=== PATIENT | female | born 1965 | race Caucasian/White ===

== ENCOUNTER 2016-12-11 15:38 | Emergency (ER) | payer MEDICAID ==
[~2016-12-11] VITALS: Ht 160 cm; Wt 99.8 kg
[~2016-12-11 15:38] MED LIST: BUSP5TAB3 PO; CAT.1 PO; GLIP2.5T3 PO; GLIP5TAB13 PO; GLU500 PO; HYDR25TA4 PO; LISI40TA4 PO; LOSA25TA3 PO; LOSA50TA3 PO; METF1000 PO; NOR10 PO; PARO-41 PO; PARO20TA51; VALS1TAB40 PO
[2016-12-11 16:30] VITALS: BP 143/96; PULSE 66; RESP 20; TEMP 97.9; O2SAT 96
--- NOTE | 2016-12-11 16:37 | NUR ---
Pt placed to ER waiting room in stable condition. LESLIE Pedraza notified.
--- NOTE | 2016-12-11 17:15 | NUR ---
Pt placed to ER Chair. Dr. Brush made aware.
--- NOTE | 2016-12-11 17:30 | NUR ---
Dr. Brush at bedside to assess pt.
--- NOTE | 2016-12-11 17:45 | NUR ---
Note [facility]one in EDM - 12/11/16 at 1924 by SDEDAJ Patient given written and verbal discharge instructions and verbalizes understanding. ER discussed with patient the results and treatment provided. Patient in stable condition. ID arm band removed. Rx of [place] and Motrin given. Patient educated on pain management and to follow up with PMD. Pain Scale 3/10. Opportunity for questions provided and answered.
[2016-12-11 18:00] VITALS: BP 135/86; PULSE 72; RESP 20; TEMP 98.2; O2SAT 98
--- NOTE | 2016-12-11 18:00 | NUR ---
Patient given written and verbal discharge instructions and verbalizes understanding. ER MD discussed with patient the results and treatment provided. Patient in stable condition. ID arm band removed. Rx of [place] and Motrin given. Patient educated on pain management and to follow up with PMD. Pain Scale 3/10. Opportunity for questions provided and answered.
== END 2016-12-11 18:00 | disposition home or self-care (01) ==
LOC: SED 15:38
DX: S93.602A Unspecified sprain of left foot, initial encounter (principal); E11.9 Type 2 diabetes mellitus without complications; I10 Essential (primary) hypertension; Z88.8 Allergy status to other drugs, medicaments and biological substances; W22.01XA Walked into wall, initial encounter; Y93.89 Activity, other specified; Y99.8 Other external cause status; Y92.89 Other specified places as the place of occurrence of the external cause
CPT/HCPCS: 99284

== ENCOUNTER 2016-12-31 18:32 | Emergency (ER) | payer MEDICAID ==
[~2016-12-31] VITALS: Ht 160 cm; Wt 102.1 kg
[~2016-12-31 18:32] MED LIST changes: -GLIP5TAB13 PO; -GLU500 PO; -LISI40TA4 PO; -LOSA25TA3 PO; -PARO20TA51; -VALS1TAB40 PO
[2016-12-31 18:53] VITALS: BP_SYST 135
[2016-12-31] MEDS ORDERED: LORazepam 2 MG/ML VIAL (FOR ER USE) IVP ONE ×3 (19:00→20:00)
[2016-12-31] MEDS ORDERED: NACL 0.9% 1,000 ML IV ONE (19:00)
[2016-12-31 19:41] LABS: BASOPHILS % (AUTO) 0.5 % (0.0-2.0); EOSINOPHILS # (AUTO) 0.1 K/uL (0.0-0.4); EOSINOPHILS % (AUTO) 1.2 % (0.0-4.0); HEMATOCRIT 45.8 % (36-48); HEMOGLOBIN 15.2 g/dL (12.0-16.0); LYMPHOCYTES # (AUTO) 2.1 K/uL (1.0-5.5); LYMPHOCYTES % (AUTO) 21.5 % (20.5-51.5); MEAN CORPUSCULAR HEMOGLOBIN 29 pg (27-31); MEAN CORPUSCULAR HGB CONC 33 % (32-36); MEAN CORPUSCULAR VOLUME 88 fL (79.0-98.0); MONOCYTES # (AUTO) 0.5 K/uL (0.0-1.0); MONOCYTES % (AUTO) 5.3 % (1.7-9.3); NEUTROPHILS # (AUTO) 7.3 K/uL (1.8-7.7); NEUTROPHILS % (AUTO) 71.5 % (40.0-70.0); PLATELET COUNT (AUTO) 427 K/uL (130-430); RED BLOOD CELL COUNT(AUTO) 5.24 MIL/uL (4.2-6.2)
[2016-12-31 19:50] LABS: CALCIUM 9.5 mg/dL (8.4-11.0); CREATININE 0.93 mg/dL (0.55-1.30); POTASSIUM 3.9 mmol/L (3.5-5.1)
[2016-12-31 19:54] LABS: ALBUMIN 3.8 g/dL (3.4-4.8); TOTAL BILIRUBIN 0.3 mg/dL (0.0-1.0)
[2016-12-31 21:25] VITALS: BP_SYST 131
== END 2016-12-31 21:25 | disposition home or self-care (01) ==
LOC: SED 18:32
DX: R42 Dizziness and giddiness (principal); E11.9 Type 2 diabetes mellitus without complications; I10 Essential (primary) hypertension; Z88.8 Allergy status to other drugs, medicaments and biological substances
CPT/HCPCS: 36415; 70450; 71010; 80053; 82962; 83735; 83880; 85025; 93005; 96361; 96374; 99285; J2060; J7030

== ENCOUNTER 2017-04-24 01:04 | Emergency (ER) | payer MEDICAID ==
[~2017-04-24] VITALS: Ht 160 cm; Wt 100.2 kg
[2017-04-24 01:04] VITALS: BP_SYST 138
[2017-04-24 02:04] LABS: BILIRUBIN,URINE NEGATIVE (NEGATIVE); BLOOD, URINE NEGATIVE (NEGATIVE); CLARITY/URINE CLEAR (CLEAR); COLOR,URINE YELLOW (YELLOW); GLUCOSE,URINE TRACE (NEGATIVE); KETONES,URINE NEGATIVE (NEGATIVE); LEUKOCYTE ESTERASE ,URINE NEGATIVE (NEGATIVE); NITRITE, URINE NEGATIVE (NEGATIVE); PH,URINE 5.5 (5.0-8.0); PROTEIN URINE NEGATIVE (NEGATIVE); UROBILINOGEN,URINE 0.2 (0.2-1.0)
[2017-04-24] MEDS ORDERED: KETOROLAC TROMETHAMINE 30 MG VIAL IVP ONE (02:15)
[2017-04-24] MEDS ORDERED: ONDANSETRON HCL 4 MG/2 ML VIAL IVP ONE (02:15)
[2017-04-24 02:28] LABS: BASOPHILS % (AUTO) 0.4 % (0.0-2.0); EOSINOPHILS # (AUTO) 0.2 K/uL (0.0-0.4); EOSINOPHILS % (AUTO) 2.9 % (0.0-4.0); HEMATOCRIT 38.9 % (36-48); HEMOGLOBIN 12.9 g/dL (12.0-16.0); LYMPHOCYTES # (AUTO) 0.8 K/uL (1.0-5.5); LYMPHOCYTES % (AUTO) 10.6 % (20.5-51.5); MEAN CORPUSCULAR HEMOGLOBIN 29 pg (27-31); MEAN CORPUSCULAR HGB CONC 33 % (32-36); MEAN CORPUSCULAR VOLUME 87 fL (79.0-98.0); MONOCYTES # (AUTO) 0.7 K/uL (0.0-1.0); MONOCYTES % (AUTO) 9.3 % (1.7-9.3); NEUTROPHILS # (AUTO) 5.5 K/uL (1.8-7.7); NEUTROPHILS % (AUTO) 76.8 % (40.0-70.0); PLATELET COUNT (AUTO) 311 K/uL (130-430); RED BLOOD CELL COUNT(AUTO) 4.48 MIL/uL (4.2-6.2); WHITE BLOOD COUNT (AUTO) 7.2 K/uL (4.8-10.8)
[2017-04-24 02:37] LABS: CALCIUM 9.4 mg/dL (8.4-11.0); POTASSIUM 3.5 mmol/L (3.5-5.1)
[2017-04-24 02:42] LABS: ALBUMIN 3.3 g/dL (3.4-4.8); TOTAL BILIRUBIN 0.4 mg/dL (0.0-1.0)
[2017-04-24 03:39] VITALS: BP_SYST 145
== END 2017-04-24 03:39 | disposition home or self-care (01) ==
LOC: SED 01:04
DX: R10.9 Unspecified abdominal pain (principal); H81.10 Benign paroxysmal vertigo, unspecified ear; I88.9 Nonspecific lymphadenitis, unspecified; E11.9 Type 2 diabetes mellitus without complications; I10 Essential (primary) hypertension; Z90.49 Acquired absence of other specified parts of digestive tract; Z90.710 Acquired absence of both cervix and uterus; Z88.8 Allergy status to other drugs, medicaments and biological substances; Z79.899 Other long term (current) drug therapy
CPT/HCPCS: 36415; 74176; 80053; 81003; 83690; 85025; 96374; 96375; 99285; J1885; J2405

== ENCOUNTER 2017-04-27 17:05 | Inpatient (IN) | payer MEDICAID ==
[~2017-04-27] VITALS: Ht 160 cm; Wt 96.6 kg
--- NOTE | 2017-04-27 17:10 | NUR ---
Pt to bed 3, report given to KRISTINA Lagunas
[2017-04-27 17:17] VITALS: BP_SYST 145
--- NOTE | 2017-04-27 17:30 | NUR ---
Patient to ED bed 3 for evaluation of abdominal pain, right sided rated at 8/10 x 5 days, also c/o nausea, chills, and constipation. Patient just recently seen in ED for similar complaints. Patient to bathroom to provide urine sample which was sent to lab. Patient ambulates with slow, steady gait. Awaiting evaluation by ER MD-will continue to observe and assess.
--- NOTE | 2017-04-27 17:55 | NUR ---
Dr Valera at bedside to evaluate patient.
[2017-04-27] MEDS ORDERED: KETOROLAC TROMETHAMINE 60 MG/2 ML VIAL IM ONE (18:00)
--- NOTE | 2017-04-27 18:05 | NUR ---
Patient to X-ray department for films.
[2017-04-27 18:14] LABS: BASOPHILS % (AUTO) 0.3 % (0.0-2.0); EOSINOPHILS # (AUTO) 0.2 K/uL (0.0-0.4); EOSINOPHILS % (AUTO) 2.4 % (0.0-4.0); HEMATOCRIT 42.2 % (36-48); HEMOGLOBIN 13.8 g/dL (12.0-16.0); LYMPHOCYTES # (AUTO) 0.6 K/uL (1.0-5.5); LYMPHOCYTES % (AUTO) 7.4 % (20.5-51.5); MEAN CORPUSCULAR HEMOGLOBIN 29 pg (27-31); MEAN CORPUSCULAR HGB CONC 33 % (32-36); MEAN CORPUSCULAR VOLUME 87 fL (79.0-98.0); MONOCYTES # (AUTO) 0.4 K/uL (0.0-1.0); MONOCYTES % (AUTO) 5.5 % (1.7-9.3); NEUTROPHILS # (AUTO) 6.5 K/uL (1.8-7.7); NEUTROPHILS % (AUTO) 84.4 % (40.0-70.0); PLATELET COUNT (AUTO) 277 K/uL (130-430); RED BLOOD CELL COUNT(AUTO) 4.83 MIL/uL (4.2-6.2); RED CELL DISTRIBUTION WIDTH 11.9 % (9.0-15.0); WHITE BLOOD COUNT (AUTO) 7.7 K/uL (4.8-10.8)
--- NOTE | 2017-04-27 18:15 | NUR ---
Patient back from x-ray in stable condition.
[2017-04-27 18:24] LABS: CALCIUM 9.3 mg/dL (8.4-11.0); CREATININE 0.77 mg/dL (0.55-1.30)
[2017-04-27 18:28] LABS: ALBUMIN 3.3 g/dL (3.4-4.8); TOTAL BILIRUBIN 0.4 mg/dL (0.0-1.0)
[2017-04-27] MEDS ORDERED: POTASSIUM CHLORIDE 20 MEQ TAB.PRT.SR PO ONE ×2 (19:00→23:00)
[2017-04-27 19:35] VITALS: BP_SYST 114
--- NOTE | 2017-04-27 19:39 | NUR ---
ADMISSION NOTE Received patient from ER via gurghazala, received report from RN. Patient admitted with diagnosis of ABDOMINAL PAIN. Patient oriented to hospital routine, call light, toileting and safety-patient verbalized understanding.
--- NOTE | 2017-04-27 19:50 | NUR ---
Patient will be admitted to care of Dr Castillo. Admitted to med-surg unit. Will go to room 100 A. Belongings list completed. Summary report printed. Report will be given at bedside.
[2017-04-27 19:57] VITALS: BP_SYST 114
--- NOTE | 2017-04-27 20:01 | NUR ---
REPORT GIVEN TO PRIMARY NURSE Patient is stable with no s/s of acute distress. Report was given to SHONDA Randhawa.
[2017-04-27 20:31] VITALS: BP_SYST 114
--- NOTE | 2017-04-27 21:26 | NUR ---
notes pt c/o pain waiting for dr Castillo to come and place the orders.
--- NOTE | 2017-04-27 21:57 | NUR ---
notes dr Castillo is here to see the pt.
[2017-04-27] MEDS ORDERED: DEXTROSE 50% JECT 50 ML DISP.SYRIN IVP PRN (22:00)
--- NOTE | 2017-04-27 22:01 | NUR ---
paged paged Dr. Hawkins, dialed . s/w Deloris.
[2017-04-27] MEDS ORDERED: GOLYTELY / COLYTE SOLUTION 4 LITERS PO ONE (23:00)
[2017-04-27] MEDS: LR 1,000 ML IV SCH (23:02)
--- NOTE | 2017-04-27 23:09 | NUR ---
NOTES IV HUNG ORDERED.GOLYTELY GIVEN WITH INSTRUCTIONS.
[2017-04-27] MEDS: MORPHINE 4 MG/ML INJ. SYRINGE IVP PRN (23:17)
--- NOTE | 2017-04-27 23:23 | NUR ---
PAIN Patient is awake with complaints of "8/10" generalized pain to abdomen, neck, and ears. Patient was given Morphine 4mg IVP as ordered PRN for severe pain. See EMAR. Educated patient regarding medication and potential side effects and potential risk for falls. Instructed patient to use call light for any needs, especially when ambulating out of bed for safety precautions. Patient verbalized understanding and is able to use call light. Bed alarm remains off as requested by patient. SHONDA Randhawa also aware. Will continue to monitor.
--- NOTE | 2017-04-27 23:28 | NUR ---
notes pt refusing scd.
[2017-04-28] VITALS (7 sets, daily range): BP systolic 111–165
--- NOTE | 2017-04-28 01:22 | NUR ---
notes pt awake and states no bm yet.tolerating the goleitly well,continue to monitor.
[2017-04-28] MEDS: DIPHENHYDRAMINE INJ 50 MG/ML VIAL IVP PRN ×2 (01:49→08:23)
--- NOTE | 2017-04-28 01:52 | NUR ---
ITCHING Patient complaining of "itching all over." Benadryl IVP was given as ordered PRN for itching. Educated patient regarding medication and potential side effects. Safety precautions in place. Instructed patient to use call light for needs. Will continue to monitor.
--- NOTE | 2017-04-28 03:30 | NUR ---
notes pt sleeping at times,no distress noted.continue to monitor.
--- NOTE | 2017-04-28 03:49 | NUR ---
notes pt scratching both arms and c/o pain to both ears.pt states she started itching before she was given the morphine.RN was notified.
[2017-04-28] MEDS: MORPHINE 4 MG/ML INJ. SYRINGE IVP PRN ×2 (03:55→16:25)
--- NOTE | 2017-04-28 03:59 | NUR ---
PAIN Patient is awake with complaints of "8/10" pain to ear. Patient medicated with Morphine 4mg IVP as ordered PRN for severe pain. Medication and potential side effects reviewed with patient. HOME HEALTH AIDE CAREGIVER at bedside. Educated patient to use call light for needs. Safety precautions in place. Will continue to monitor.
--- NOTE | 2017-04-28 05:30 | NUR ---
notes pt drank 2000 ml of goleitly c/o mild abdominal cramping.but has had no bm yet.continue to monitor.
--- NOTE | 2017-04-28 05:58 | NUR ---
PAGED I PAGED DR. BAEZA @ [phone] I SPOKE WITH DEONTE MILLARD
--- NOTE | 2017-04-28 06:09 | NUR ---
NOTES SPOKE WITH DR Mazariegos,NEW ORDERS TAKEN.
--- NOTE | 2017-04-28 06:32 | NUR ---
NOTES SURGERY NURSE IS AT THE BEDSIDE,CALL PLACED TO DR DALY.ACCUCHECK WAS 267,INSULIN GIVEN PER S/S.
[2017-04-28] MEDS: INSULIN REGULAR, HUMAN 100 UNITS/ML, 10 ML VIAL (novoLIN R) SUBCUT PRN ×3 (06:38→21:38)
--- NOTE | 2017-04-28 06:51 | NUR ---
NOTES SPOKE WITH DR DALY,WAS TOLD THE PT HAD A LARGE BM , STATED HE WILL DO THE COLONOSCOPY TOMORROW,SURGERY NURSE WAS NOTIFIED.
--- NOTE | 2017-04-28 07:01 | NUR ---
LATE ENTRY: BLAKE HUNTER, DR DALY WAS CALLED, RE: PT NOT CLEAR FOR THE PROCEDURE. SPOKE TO ANNIA.
--- NOTE | 2017-04-28 07:30 | NUR ---
Initial notes: patient on bed, awake, alert and oriented. Stable. i.V. access patent. Call light within reach. Report received at bedside.
[2017-04-28 07:37] LABS: BASOPHILS % (AUTO) 0.4 % (0.0-2.0); EOSINOPHILS # (AUTO) 0.2 K/uL (0.0-0.4); EOSINOPHILS % (AUTO) 2.9 % (0.0-4.0); HEMATOCRIT 40.5 % (36-48); HEMOGLOBIN 13.1 g/dL (12.0-16.0); LYMPHOCYTES # (AUTO) 0.5 K/uL (1.0-5.5); LYMPHOCYTES % (AUTO) 8.7 % (20.5-51.5); MEAN CORPUSCULAR HEMOGLOBIN 28 pg (27-31); MEAN CORPUSCULAR HGB CONC 32 % (32-36); MEAN CORPUSCULAR VOLUME 87 fL (79.0-98.0); MONOCYTES # (AUTO) 0.5 K/uL (0.0-1.0); MONOCYTES % (AUTO) 7.6 % (1.7-9.3); NEUTROPHILS # (AUTO) 4.9 K/uL (1.8-7.7); NEUTROPHILS % (AUTO) 80.4 % (40.0-70.0); PLATELET COUNT (AUTO) 273 K/uL (130-430); RED BLOOD CELL COUNT(AUTO) 4.64 MIL/uL (4.2-6.2); RED CELL DISTRIBUTION WIDTH 11.6 % (9.0-15.0); WHITE BLOOD COUNT (AUTO) 6.1 K/uL (4.8-10.8)
[2017-04-28 08:04] LABS: CALCIUM 8.8 mg/dL (8.4-11.0); CREATININE 0.81 mg/dL (0.55-1.30); POTASSIUM 3.6 mmol/L (3.5-5.1); THYROID STIMULATING HORMONE 3.46 uIu/mL (0.34-4.82)
[2017-04-28] MEDS: MORPHINE 2 MG/ML INJ. SYRINGE IVP PRN ×2 (08:24→21:45)
[2017-04-28 08:57] LABS: ERYTHROCYTE SEDIMENTATION RATE 38 MM/HR (0-20)
[2017-04-28] MEDS: amLODIPine BESYLATE 10 MG TABLET PO SCH (09:30)
[2017-04-28] MEDS: metFORMIN HCL 500 MG TABLET PO SCH ×2 (09:30→19:46)
[2017-04-28] MEDS: PARoxetine HCL 20 MG TABLET PO SCH ×2 (09:31→20:58)
[2017-04-28] MEDS: cloNIDine HCL 0.1 MG TABLET PO SCH ×3 (09:31→20:58)
[2017-04-28] MEDS: HYDROCHLOROTHIAZIDE 25 MG TABLET (HCTZ) PO SCH (09:31)
[2017-04-28] MEDS: LOSARTAN POTASSIUM 50 MG TABLET (COZAAR) PO SCH (09:32)
--- NOTE | 2017-04-28 09:50 | NUR ---
Vomiting: patient after 5 min taking medication threw up. Informed Dr. Castillo and give again the medication.
[2017-04-28] MEDS: LR 1,000 ML IV SCH ×2 (10:02→21:50)
--- NOTE | 2017-04-28 11:56 | NUR ---
Dietitian Recommendations * Recommend continuing clear liquid and NPO status as per MD * Consider advance diet if/when medically appropriate (diabetic diet) LP, RD Please refer to Nutrition Assessment for details.
--- NOTE | 2017-04-28 11:57 | NUR ---
rounds: patient resting. no episode of vomiting. no distress noted.
[2017-04-28] MEDS: PANTOPRAZOLE SODIUM 40 MG/VIAL (PROTONIX) IVP SCH ×2 (12:59→20:59)
[2017-04-28] MEDS: POTASSIUM CHLORIDE 20 MEQ TAB.PRT.SR PO SCH ×2 (12:59→20:59)
--- NOTE | 2017-04-28 13:06 | NUR ---
Deanne rounds: Seen by Dr. Castillo and talk to pt. Discussed plan of care.
[2017-04-28] MEDS ORDERED: BISACODYL 5 MG TABLET.DR (DULCOLAX) PO ONE (14:00)
[2017-04-28] MEDS ORDERED: GOLYTELY / COLYTE SOLUTION 4 LITERS PO ONE (16:00)
[2017-04-28] MEDS ORDERED: BISACODYL 5 MG TABLET.DR (DULCOLAX) ONE (16:28)
--- NOTE | 2017-04-28 16:35 | NUR ---
rounds: patient on bed sleeping. woke up and complained of neck pain 04/05. due pain meds given. BS 148. no insulin coverage per sliding scale.
[2017-04-28] MEDS ORDERED: MAGNESIUM CITRATE 300 ML ORAL SOLUTION PO ONE (19:00)
--- NOTE | 2017-04-28 19:25 | NUR ---
PM ASSESSMENT AND REPORT Patient awake, alert, oriented x4 lying in bed comfortably with family member at bedside. Patient denies at this time abdomen pain. Patient encouraged to drink the preparation medication noted at bedside per MD order. Patient with IV fluids infusing, iv intact and patent.
--- NOTE | 2017-04-28 19:30 | NUR ---
closing notes: patient verbalized she's having watery stool. informed pt to call [facility] shift lead nurse if she will have BM so they can see. Stable. Call light within reach. Report given to [facility] shift lead.
[2017-04-28] MEDS: glipiZIDE XL 5 MG TAB ( GLUCOTROL XL) PO SCH (21:00)
--- NOTE | 2017-04-28 21:48 | NUR ---
Medication Administered pm medications at this time. Patient complained of pain 6/10 dull and aching in upper stomach and neck, Morphine sulfate 2mg ivp medication give for prn pain. Will assess in 30 minutes.
--- NOTE | 2017-04-28 22:50 | NUR ---
ROUNDS PATIENT RESTING IN BED WITH FAMILY AT BEDSIDE FOR COMFORT. PATIENT DENIES ANY PAIN AT THIS TIME. ENCOURAGE PATIENT TO CALL FOR ASSISTANCE TO TOILET TO ASSESS STOOL APPEARANCE. ENCOURAGE PATIENT TO DRINK THE PROCEDURE PREPARATION MEDICATION.
[2017-04-29] VITALS (7 sets, daily range): BP systolic 101–129
--- NOTE | 2017-04-29 | NUR ---
Rounds Assisted patient to toilet, noted ackerman colored watery stool. Encourage patient to continue to drink golytely. Patient verbalized understanding. Denies any pain or discomfort at this time.
--- NOTE | 2017-04-29 02:25 | NUR ---
Rounds Patient resting at this time. Bed alarm on. Denies any discomfort.
--- NOTE | 2017-04-29 04:48 | NUR ---
Rounds Assisted patient to toilet. Encourage drinking bowel preparation medication. Noted tannish clear watery urine output.
[2017-04-29] MEDS: MORPHINE 2 MG/ML INJ. SYRINGE IVP PRN ×3 (05:53→21:01)
[2017-04-29] MEDS: INSULIN REGULAR, HUMAN 100 UNITS/ML, 10 ML VIAL (novoLIN R) SUBCUT PRN ×3 (06:02→20:58)
--- NOTE | 2017-04-29 06:05 | NUR ---
Closing notes: Patient educated on procedure at this time. Bowel movements noted clear water. Procedure scheduled at 0645. Provided pain prn morphine sulfate ivp medication at this time for cramping in stomach. Patient denies anything more at this time.
[2017-04-29] MEDS: MEPERIDINE HCL/PF 100 MG/ML AMP ONE ×2 (06:23→07:19)
[2017-04-29] MEDS ORDERED: SIMETHICONE 40 MG/0.6 ML ML ONE (06:24)
[2017-04-29] MEDS: MIDAZOLAM HCL 5 MG/5 ML VIAL ONE ×2 (06:24→07:19)
--- NOTE | 2017-04-29 07:22 | NUR ---
Initial notes: Patient still on G.I. lab on going procedure.
--- NOTE | 2017-04-29 07:45 | NUR ---
Opening Note Received report from Noa ACEVEDO. will be taking over the patient's care. Patient is currently in GI lab.
--- NOTE | 2017-04-29 08:18 | NUR ---
RN Note Patient returned to the unit form GI lab. She is awake and alert. Current O2 sat is 90%. Will place her on o2 2l and recheck O2. Iv is on the IV is on the right hand 22g. Will continue to monitor.
[2017-04-29 08:22] LABS: BASOPHILS % (AUTO) 0.2 % (0.0-2.0); EOSINOPHILS # (AUTO) 0.2 K/uL (0.0-0.4); EOSINOPHILS % (AUTO) 3.3 % (0.0-4.0); HEMATOCRIT 33.8 % (36-48); HEMOGLOBIN 11.5 g/dL (12.0-16.0); LYMPHOCYTES # (AUTO) 0.8 K/uL (1.0-5.5); LYMPHOCYTES % (AUTO) 13.7 % (20.5-51.5); MEAN CORPUSCULAR HEMOGLOBIN 29 pg (27-31); MEAN CORPUSCULAR HGB CONC 34 % (32-36); MEAN CORPUSCULAR VOLUME 86 fL (79.0-98.0); MONOCYTES # (AUTO) 0.6 K/uL (0.0-1.0); NEUTROPHILS # (AUTO) 4.4 K/uL (1.8-7.7); NEUTROPHILS % (AUTO) 72.8 % (40.0-70.0); PLATELET COUNT (AUTO) 240 K/uL (130-430); RED BLOOD CELL COUNT(AUTO) 3.92 MIL/uL (4.2-6.2); RED CELL DISTRIBUTION WIDTH 11.9 % (9.0-15.0)
[2017-04-29 08:29] LABS: CALCIUM 8.1 mg/dL (8.4-11.0); CREATININE 0.79 mg/dL (0.55-1.30); POTASSIUM 3.7 mmol/L (3.5-5.1)
[2017-04-29 08:37] LABS: PROTHROMBIN TIME 11.3 SECS (9.5-12.5)
[2017-04-29] MEDS: glipiZIDE XL 5 MG TAB ( GLUCOTROL XL) PO SCH ×3 (09:00→21:00)
[2017-04-29] MEDS: metFORMIN HCL 500 MG TABLET PO SCH (09:37)
[2017-04-29] MEDS: PARoxetine HCL 20 MG TABLET PO SCH ×2 (09:38→21:00)
[2017-04-29] MEDS: amLODIPine BESYLATE 10 MG TABLET PO SCH (09:38)
[2017-04-29] MEDS: POTASSIUM CHLORIDE 20 MEQ TAB.PRT.SR PO SCH ×2 (09:38→21:00)
[2017-04-29] MEDS: PANTOPRAZOLE SODIUM 40 MG/VIAL (PROTONIX) IVP SCH ×2 (09:39→21:00)
[2017-04-29] MEDS: HYDROCHLOROTHIAZIDE 25 MG TABLET (HCTZ) PO SCH (09:39)
[2017-04-29] MEDS: LOSARTAN POTASSIUM 50 MG TABLET (COZAAR) PO SCH (09:39)
[2017-04-29] MEDS: cloNIDine HCL 0.1 MG TABLET PO SCH ×3 (09:39→21:00)
--- NOTE | 2017-04-29 09:45 | NUR ---
RN Note Patient went to x-ray in stable condition, accompanied by x-ray tech.
--- NOTE | 2017-04-29 11:05 | NUR ---
RN Note Patient returned to the unit in stable condition.
[2017-04-29] MEDS: MORPHINE 4 MG/ML INJ. SYRINGE IVP PRN (11:33)
--- NOTE | 2017-04-29 12:30 | NUR ---
Pain med Patient was medicated for pain. Will reassess.
--- NOTE | 2017-04-29 14:35 | NUR ---
Rounds Patient is resting in bed. Call light is within reach.
--- NOTE | 2017-04-29 16:50 | NUR ---
Pain med Medicated the patient for pain. Will reassess.
[2017-04-29] MEDS: LR 1,000 ML IV SCH (16:51)
--- NOTE | 2017-04-29 18:07 | NUR ---
Closing Note Patient is resting in bed. Family is at the bedside. Call light is within reach. Bed is in low position. IV 22g is on the right hand running LR@80ml/hr. Will give report to the oncoming nurse.
--- NOTE | 2017-04-29 19:25 | NUR ---
INITIAL NOTE Patient resting on the bed. No acute distress. Respiration even and unlabored. AO x 4. Denied of pain at this time. Skin warm and dry to touch. IV intact to right hand, no redness, no swelling, no drainage. On LR at 80ml/hr, infusing well. Discussed the safety issue, use call light when need help, and plan of care, verbally understanding. Safety measure maintained. Bed in low position, side rails up. Call light within reached. Will continue to monitor.
--- NOTE | 2017-04-29 21:10 | NUR ---
NOTE schedule meds given. No acute distress. PS=681, refused 2unit regular insulin and stated "I will be nothing by mouth midnight, I don't want my sugar drop." Morphine 2mg IVP given as ordered for c/o bilateral neck pain02/03. Safety measure maintained. Call light within reached. Will continue to monitor.
--- NOTE | 2017-04-29 23:01 | NUR ---
ROUND Patient resting on the bed with eyes closed. No acute distress. Respiration even and unlabored. IV intact, IVF infusing well. Safety measure maintained. Bed in low position, side rails up. Call light within reached. Continue to monitor.
[2017-04-30] VITALS: BP_SYST 108
--- NOTE | 2017-04-30 01:12 | NUR ---
ROUND Patient resting on the bed with eyes closed. No acute distress. IV intact, IVF infusing well. Safety measure maintained. Bed in low position, side rails up. Call light within reached. Continue to monitor.
--- NOTE | 2017-04-30 03:02 | NUR ---
ROUND Patient resting on the bed with eyes closed. Respiration even and unlabored. No acute distress. IV intact, IVF infusing well. Safety measure maintained. Bed in low position, side rails up. Call light within reached. Continue to monitor.
[2017-04-30 04:00] VITALS: BP_SYST 118
[2017-04-30] MEDS: LR 1,000 ML IV SCH ×3 (04:24→22:34)
[2017-04-30] MEDS: MORPHINE 2 MG/ML INJ. SYRINGE IVP PRN ×2 (04:24→09:30)
--- NOTE | 2017-04-30 04:24 | NUR ---
MORPHINE GIVEN Patient c/o right and left neck pain 6/10, Morphine 2mg IVP given as ordered. No acute distress. Safety measure maintained. Bed in low position, side rails up. Call light within reached. Continue to monitor.
--- NOTE | 2017-04-30 06:40 | NUR ---
CLOSING NOTE Patient resting on the bed. No acute distress. Respiration even and unlabored. Skin warm and dry to touch. IV intact to right hand, no redness, no swelling, no drainage. On LR at 80ml/hr, infusing well. All needs met. Safety measure maintained. Bed in low position, side rails up. Call light within reached. Will continue to monitor.
[2017-04-30] MEDS: INSULIN REGULAR, HUMAN 100 UNITS/ML, 10 ML VIAL (novoLIN R) SUBCUT PRN ×3 (06:59→21:17)
[2017-04-30] MEDS ORDERED: DIATR MEGLU/DIATRIZ SOD 30 ML SOLUTION PO ONE (07:33)
[2017-04-30 08:00] VITALS: BP_SYST 147
--- NOTE | 2017-04-30 08:00 | NUR ---
am shift note: RECEIVED PT A/O X4, C/O ABDOMINAL PAIN, 12/04 , NPO FOR CT OF ABDOMEN, IV AT RT HAND WITH RL AT 80ML/HR, AMBULATED, SKIN INTACT, VOIDING, BED AT LOW POSITION, CALL LIGHT WITHIN REACH.
[2017-04-30] MEDS: glipiZIDE XL 5 MG TAB ( GLUCOTROL XL) PO SCH ×2 (09:01→21:23)
[2017-04-30] MEDS: POTASSIUM CHLORIDE 20 MEQ TAB.PRT.SR PO SCH ×2 (09:03→21:23)
[2017-04-30] MEDS: cloNIDine HCL 0.1 MG TABLET PO SCH ×3 (09:03→21:23)
[2017-04-30] MEDS: LOSARTAN POTASSIUM 50 MG TABLET (COZAAR) PO SCH (09:03)
[2017-04-30] MEDS: PARoxetine HCL 20 MG TABLET PO SCH ×2 (09:03→21:23)
[2017-04-30] MEDS: amLODIPine BESYLATE 10 MG TABLET PO SCH (09:04)
[2017-04-30] MEDS: HYDROCHLOROTHIAZIDE 25 MG TABLET (HCTZ) PO SCH (09:04)
[2017-04-30] MEDS: PANTOPRAZOLE SODIUM 40 MG/VIAL (PROTONIX) IVP SCH ×2 (09:05→21:22)
--- NOTE | 2017-04-30 10:10 | NUR ---
PT WENT FOR CT: PT WENT FOR CT, VITAL SIGNS STABLE.
[2017-04-30] MEDS ORDERED: IOHEXOL 100 ML IV ONE (10:28)
--- NOTE | 2017-04-30 10:45 | NUR ---
PT RETURN FROM CT: PT RETURN FROM CT, CONTINUE TO MONITOR.
[2017-04-30 12:00] VITALS: BP_SYST 128
[2017-04-30] MEDS: DIPHENHYDRAMINE INJ 50 MG/ML VIAL IVP PRN (12:39)
--- NOTE | 2017-04-30 14:30 | NUR ---
MD ROUNDING: SEEN BY , ORDER CARRIED OUT.
[2017-04-30] MEDS ORDERED: KETOROLAC TROMETHAMINE 15 MG VIAL IVP PRN (14:45)
[2017-04-30] MEDS ORDERED: HYDROcodone/ACETAMIN 5-325 MG TAB (NORCO/ VICODIN) PO PRN (14:45)
[2017-04-30] MEDS: ONDANSETRON HCL 4 MG/2 ML VIAL IVP PRN (15:05)
--- NOTE | 2017-04-30 15:29 | NUR ---
CONSULTATION PAGED REASON FOR CONSULTATION:ABDOMINAL MASS WAS CONSULT CALLED?Y PERSON WHO WAS NOTIFIED:COLE CONSULTING PHYSICIAN:BILLY MARTINEZ BOOKKEEPING TEACHER SPECIALTY:SURGEON BOOKKEEPING TEACHER PHONE NUMBER:[phone] REQUESTING PHYSICIAN:ALEM ROLDAN
[2017-04-30 16:13] VITALS: BP_SYST 122
--- NOTE | 2017-04-30 16:30 | NUR ---
ROUNDING: PT HAD FAMILY VISIT, CONTINUE TO MONITOR.
--- NOTE | 2017-04-30 19:10 | NUR ---
CLOSING NOTE: ENDORSED TO [employer] LAYUP LINE CORE FEEDER FOR CONTINUE CARE.
[2017-04-30 20:00] VITALS: BP_SYST 138
--- NOTE | 2017-04-30 20:00 | NUR ---
ROUNDS PATIENT IN BED, WATCHING TV, NOT IN DISTRESS, VITALS STABLE, DENIES ANY PAIN AND DISCOMFORT AT THIS TIME. ASSESSMENT DONE AND DOCUMENTED. SEE FLOWSHEET. NEEDS ATTENDED TO. SAFETY AND FALL PRECAUTION MEASURES IN PLACED. BED IN LOW AND LOCKED POSITION. CALL LIGHT PLACED WITHIN REACH.
--- NOTE | 2017-04-30 21:15 | NUR ---
MEDICATION DUE MEDICATIONS GIVEN ORDERED, TOLERATED WELL. WILL CONTINUE TO MONITOR.
[2017-04-30] MEDS: HYDROcodone/ACETAMIN 5-325 MG TAB (NORCO/ VICODIN) PO PRN (21:25)
[2017-05-01] VITALS: BP_SYST 121
--- NOTE | 2017-05-01 | NUR ---
PATIENT RESTING: Patient resting quietly. No acute distress noted. Vital signs within normal range.
--- NOTE | 2017-05-01 02:10 | NUR ---
ROUNDS PATIENT ASLEEP, NO SOB NOTED, WILL CONTINUE TO MONITOR.
[2017-05-01] MEDS: HYDROcodone/ACETAMIN 5-325 MG TAB (NORCO/ VICODIN) PO PRN (02:16)
[2017-05-01] MEDS: DIPHENHYDRAMINE INJ 50 MG/ML VIAL IVP PRN ×4 (02:17→16:41)
[2017-05-01 04:00] VITALS: BP_SYST 118
--- NOTE | 2017-05-01 04:00 | NUR ---
PATIENT RESTING: Patient resting quietly. No acute distress noted. Vital signs within normal range.
--- NOTE | 2017-05-01 06:50 | NUR ---
CLOSING NOTES PATIENT AWAKE, VITALS STABLE, DENIES ANY PAIN AND DISCOMFORT AT THIS TIME. ALL NEEDS ATTENDED TO. SAFETY MEASURES MAINTAINED. CALL LIGHT PLACED WITHIN REACH.
[2017-05-01 08:00] VITALS: BP_SYST 141
--- NOTE | 2017-05-01 08:00 | NUR ---
AM SHIFT NOTE: RECEIVED PT A/O X 4, C/O NECK PAIN, WILL DO CT OF NECK TODAY, IV AT LEFT HAND, AMBULATED WELL, NPO FOR PROCEDURE, BED AT LOWEST POSITION, CALL LIGHT WITHIN REACH.
--- NOTE | 2017-05-01 08:45 | NUR ---
ROUNDING: ROUTINE MEDS GIVEN, PT TOLERATED WELL.
[2017-05-01] MEDS: PANTOPRAZOLE SODIUM 40 MG/VIAL (PROTONIX) IVP SCH ×2 (08:50→21:25)
[2017-05-01] MEDS: POTASSIUM CHLORIDE 20 MEQ TAB.PRT.SR PO SCH ×2 (08:51→21:25)
[2017-05-01] MEDS: ONDANSETRON HCL 4 MG/2 ML VIAL IVP PRN (08:51)
[2017-05-01] MEDS: PARoxetine HCL 20 MG TABLET PO SCH ×2 (08:51→21:25)
[2017-05-01] MEDS: HYDROCHLOROTHIAZIDE 25 MG TABLET (HCTZ) PO SCH (08:52)
[2017-05-01] MEDS: amLODIPine BESYLATE 10 MG TABLET PO SCH (08:53)
[2017-05-01] MEDS: LOSARTAN POTASSIUM 50 MG TABLET (COZAAR) PO SCH (08:54)
[2017-05-01] MEDS: cloNIDine HCL 0.1 MG TABLET PO SCH ×3 (08:55→21:25)
--- NOTE | 2017-05-01 09:15 | NUR ---
PT WENT FOR CT: PT WENT FOR CT, VITAL SIGNS STABLE.
[2017-05-01] MEDS ORDERED: IOHEXOL 100 ML IV ONE (09:50)
--- NOTE | 2017-05-01 10:05 | NUR ---
PT RETURNED FROM CT: PT RETURNED FROM CT, RESUME DIET.
[2017-05-01] MEDS: glipiZIDE XL 5 MG TAB ( GLUCOTROL XL) PO SCH ×2 (11:08→21:25)
[2017-05-01 12:28] VITALS: BP_SYST 143
--- NOTE | 2017-05-01 14:58 | NUR ---
Nutrition F/U Admitting Diagnosis Abd pain, mild protein malnutrition Reviewed Pertinent Medical/Surgical Hx Medical Record Patient Family member Medical History Comment: DM type 2, HTN, depression per MD notes Subjective Information Pt seen resting in bed w/ sister at bedside. Lunch tray observed 50-75% eaten. Pt reported that today's lunch was her first solid meal during hospital stay. Pt was seen by surgeon earlier today whose plans include: interventional radiologic Bx to r/o reactive lymph nodes, infection, and neoplastic Dz. Attending MD also saw pt today; pending ID and hematology/oncology consults. Pt had colonoscopy on 04/29/17 which revealed post-op diverticulosis, small internal hemorrhoids. Pt stated that she hasn't had any solid BM yet, and believes she is still expelling barium contrast. Pt is not yet meeting optimal nutritional needs. Pt is not yet appropriate for nutrition education. Current Diet Order/Nutrition Support Regular, CCHO low carb-45 gm x1 day Patient/Significant Other Able To Verbalize Education Provided Not Indicated Pertinent Medications hydrodiuril, glipizide, zofran SSI Pertinent Labs 04/29/17: Na 136 WNL (improved), BG 193 H, POC BG 203 H, LDL 106 H (04/28/17), HDL 28 H (04/28/17), Triglycerides 220 H (04/28/17) Height (Feet) 5 feet Height (Inches) 3.00 inches Weight (Pounds) 213 pounds (admission) Weight (Calculated Kilograms) 96.200724 kilograms Patient Weight 96.615 kg Body Mass Index 37.73 kg/m2 Usual Weight 220 lbs %UBW 97 %IBW 187 [place]/Adjusted Body Weight IBW: 115 lb, 52 kg. Adj IBW (obesity): 140 lb, 64 kg Recent Weight Change Yes - 7 lb wt loss within past month d/t abd pain; 3% significant wt change Weight Status Obese Food Allergies Yes - Onions; reaction: vomiting/hives Usual Diet At Home Tries to monitor BG levels; eats more fish and tries to eat less red meat Skin Integrity Comment: Karel scale: 19; per nursing notes, L leg: excoriation Current % PO Poor Estimated Energy Expenditure (kcals/day) 3592-0311 kcal/day (BEE x 1-1.2 CBW for maintenance) Estimated Protein Required (g/day) 42-52 gm/day (0.8-1 gm/kg IBW for maintenance) Estimated Fluid Required (l/day) 1.6-2 L/day (1 ml/kcal/day for maintenance) Problem/Etiology/Signs/Symptoms Complicated GI function related to abd pain as evidenced by need for GI workups and pending colonoscopy. Expected Outcomes/Goals - Monitor advancement of diet, appetite, and PO intakes w/ goal of pt meeting at least 50% of estimated nutritional needs, labs trending WNL, normal GI function, and skin integrity/wt maintenance Dietitian Recommendations * Recommend continuing regular, CCHO low carb-45 gm diet Follow Up High Risk: F/U in 2-3 days
--- NOTE | 2017-05-01 15:08 | NUR ---
Dietitian Recommendations * Recommend continuing regular, CCHO low carb-45 gm diet LP, RD Please refer to Nutrition Assessment for details.
--- NOTE | 2017-05-01 15:20 | NUR ---
CONSULT HEMATOLOGY LYMPHADENOPATHY DR RUSHING [phone] S/W [facility] OFFICE @ [id number]
--- NOTE | 2017-05-01 15:28 | NUR ---
CONSULT ID LYMPHADENOPATHY DR AHUMADA [phone] S/W [facility] OFFICE @ 1026
[2017-05-01 16:01] VITALS: BP_SYST 119
--- NOTE | 2017-05-01 16:30 | NUR ---
ROUNDING; PT WAS RESTING , NO C/O PAIN AT THIS TIME.
[2017-05-01] MEDS: LR 1,000 ML IV SCH (16:59)
--- NOTE | 2017-05-01 18:50 | NUR ---
RECEIVED A CALL FROM LAB: NEED A PROVAL FOR A LAB TEST , ORDERED BY /KEREN.
--- NOTE | 2017-05-01 19:20 | NUR ---
Closing: Endorsed to hourly shift RN for continue care.
--- NOTE | 2017-05-01 19:35 | NUR ---
CANDI HUNTER: PAGEBetsy ALEXANDER FOR A LAB TEST.
--- NOTE | 2017-05-01 19:40 | NUR ---
RECEIVED A CALL FROM : RECEIVED A CALL FROM DR. VYAS REGARDING LAB TEST OF CAT SCRATCH (BARTONELLA) ANTIBODIES TEST.
--- NOTE | 2017-05-01 20:00 | NUR ---
ROUNDS PATIENT AWAKE, WATCHING TV, VITALS STABLE, DENIES ANY PAIN AND DISCOMFORT AT THIS TIME. ASSESSMENT DONE AND DOCUMENTED. SEE FLOWSHEET. VISITORS AT THE BEDSIDE. NEEDS ATTENDED TO. SAFETY MEASURES IN PLACED. BED IN LOW AND LOCKED POSITION. CALL LIGHT PLACED WITHIN REACH.
--- NOTE | 2017-05-01 21:30 | NUR ---
ACCU CHECK ACCU CHECK DONE, BLOOD SUGAR 191 WITH 2 UNITS REGULAR INSULIN GIVEN SUBCUTANEOUSLY PER SLIDING SCALE. WILL CONTINUE TO MONITOR.
[2017-05-01] MEDS: INSULIN REGULAR, HUMAN 100 UNITS/ML, 10 ML VIAL (novoLIN R) SUBCUT PRN (22:11)
[2017-05-01 23:54] VITALS: BP_SYST 117
--- NOTE | 2017-05-02 | NUR ---
PATIENT RESTING: Patient resting quietly. No acute distress noted. Vital signs within normal range.
--- NOTE | 2017-05-02 00:05 | NUR ---
PATIENT RESTING: Patient resting quietly. No acute distress noted. Vital signs within normal range.
--- NOTE | 2017-05-02 02:20 | NUR ---
ROUNDS PATIENT ASLEEP, NO SIGNS AND SYMPTOMS OF ANY PAIN AND DISCOMFORT AT THIS TIME. WILL CONTINUE TO MONITOR.
[2017-05-02 03:50] VITALS: BP_SYST 107
--- NOTE | 2017-05-02 04:15 | NUR ---
PATIENT RESTING: Patient resting quietly. No acute distress noted. Vital signs within normal range.
[2017-05-02] MEDS: LR 1,000 ML IV SCH (05:39)
[2017-05-02] MEDS: INSULIN REGULAR, HUMAN 100 UNITS/ML, 10 ML VIAL (novoLIN R) SUBCUT PRN ×2 (06:34→21:29)
--- NOTE | 2017-05-02 06:44 | NUR ---
CLOSING NOTES PATIENT AWAKE, VITALS STABLE, DENIES ANY PAIN AND DISCOMFORT AT THIS TIME. ALL NEEDS ATTENDED TO. CALL LIGHT PLACED WITHIN REACH.
[2017-05-02 08:00] VITALS: BP_SYST 116
--- NOTE | 2017-05-02 08:00 | NUR ---
AM SHIFT NOTE: RECEIVED PT A/O X4, IV AT LT HAND, REGULAR DIET, AMBULATED, BED AT LOW POSITION, CALL LIGHT WITHIN REACH.
[2017-05-02] MEDS: PARoxetine HCL 20 MG TABLET PO SCH ×2 (09:21→21:25)
[2017-05-02] MEDS: amLODIPine BESYLATE 10 MG TABLET PO SCH (09:21)
[2017-05-02] MEDS: HYDROCHLOROTHIAZIDE 25 MG TABLET (HCTZ) PO SCH (09:22)
[2017-05-02] MEDS: cloNIDine HCL 0.1 MG TABLET PO SCH ×3 (09:23→21:25)
[2017-05-02] MEDS: POTASSIUM CHLORIDE 20 MEQ TAB.PRT.SR PO SCH ×2 (09:23→21:24)
[2017-05-02] MEDS: glipiZIDE XL 5 MG TAB ( GLUCOTROL XL) PO SCH ×2 (09:25→21:24)
[2017-05-02] MEDS: LOSARTAN POTASSIUM 50 MG TABLET (COZAAR) PO SCH (09:25)
[2017-05-02] MEDS: PANTOPRAZOLE SODIUM 40 MG/VIAL (PROTONIX) IVP SCH ×2 (09:25→22:04)
--- NOTE | 2017-05-02 09:30 | NUR ---
ROUNDS: ROUTINE MEDS GIVEN, CONTINUE TO MONITOR.
[2017-05-02] MEDS: DIPHENHYDRAMINE INJ 50 MG/ML VIAL IVP PRN ×2 (11:22→13:51)
[2017-05-02] MEDS: HYDROcodone/ACETAMIN 5-325 MG TAB (NORCO/ VICODIN) PO PRN ×2 (11:23→21:26)
[2017-05-02 12:10] VITALS: BP_SYST 132
--- NOTE | 2017-05-02 13:00 | NUR ---
ROUNDING: PT HAD LUNCH WELL.
[2017-05-02] MEDS: DOXYCYCLINE HYCLATE 100 MG in D5W 100 ML IV SCH (13:30)
[2017-05-02] MEDS: AZITHROMYCIN 500 MG in NS 250 ML IV SCH (13:30)
--- NOTE | 2017-05-02 14:30 | NUR ---
MD ROUNDS: SEEN BY , INFORMED HIM REGARDING PT HAD RASHES ON HER BODY.
--- NOTE | 2017-05-02 16:30 | NUR ---
MD ROUNDING: SEEN BY DR. BHATIA.
[2017-05-02 17:00] VITALS: BP_SYST 127
--- NOTE | 2017-05-02 19:20 | NUR ---
CLOSING: ENDORSED TO BLOWER AND COMPRESSOR ASSEMBLER NURSE FOR CONTINUE CARE.
[2017-05-02 19:35] VITALS: BP_SYST 118
--- NOTE | 2017-05-02 19:45 | NUR ---
Initial Notes Pt is A/Ox4. Pt is calm, and cooperative. Pt denies any pain or sob noted. Generalized rash noted, pt states started at home prior to admission, is aware. Informed pt that she can have benadryl as ordered for itching if needed, PRN. Plan of care discussed with pt, pt verbalized understanding. Pt's family is at bedside. IV intact, saline lock. Pt denies any abdominal pain, or n/v. Pt's lymph noted noted to be swollen bilaterally and tender to touch. Pt aware that she will be having a CT with needle biopsy and agrees to signed consent. Safety measures in place, side rails up x3, with bed in lowest, locked position. All needs met at this time. Call light in hand. Will continue to monitor.
--- NOTE | 2017-05-02 21:30 | NUR ---
Scheduled medications/Accu check Blood sugar checked, 207 - covered with 4 units or regular insulin as ordered. Pt also c/o pain 7/10 to bilateral sides of neck. Pt medicated with [employer] [place] 5-325 x2 tabs for severe pain as ordered. All scheduled medications given as ordered, with no difficulty swallowing. Call light within reach. Will continue to monitor.
[2017-05-03] VITALS (7 sets, daily range): BP systolic 106–135
[2017-05-03] MEDS: DOXYCYCLINE HYCLATE 100 MG in D5W 100 ML IV SCH ×3 (00:28→22:23)
--- NOTE | 2017-05-03 01:00 | NUR ---
PATIENT RESTING: Patient resting quietly. No acute distress noted. Vital signs within normal range. Call light in reach. Will continue to monitor.
[2017-05-03] MEDS: DIPHENHYDRAMINE INJ 50 MG/ML VIAL IVP PRN (01:26)
--- NOTE | 2017-05-03 01:40 | NUR ---
New IV site/Benadryl given IVP New IV site started to right hand #22g at this time with good blood return. Covering RN notified that pt c/o of itching and requested benadryl. Covering RN medicated with Benadryl to right hand #22g as ordered. All needs met. Call light within reach. Will continue to monitor.
--- NOTE | 2017-05-03 03:44 | NUR ---
Rounds Pt is sleeping comfortably in bed at this time. No acute distress or sob noted. IV intact. Call light in hand. Will continue to monitor.
[2017-05-03 07:01] LABS: BASOPHILS % (AUTO) 0.2 % (0.0-2.0); EOSINOPHILS # (AUTO) 0.2 K/uL (0.0-0.4); EOSINOPHILS % (AUTO) 2.5 % (0.0-4.0); HEMOGLOBIN 12.1 g/dL (12.0-16.0); LYMPHOCYTES # (AUTO) 0.4 K/uL (1.0-5.5); LYMPHOCYTES % (AUTO) 4.7 % (20.5-51.5); MEAN CORPUSCULAR HEMOGLOBIN 30 pg (27-31); MEAN CORPUSCULAR HGB CONC 34 % (32-36); MEAN CORPUSCULAR VOLUME 86 fL (79.0-98.0); MONOCYTES # (AUTO) 0.8 K/uL (0.0-1.0); MONOCYTES % (AUTO) 8.8 % (1.7-9.3); NEUTROPHILS # (AUTO) 7.9 K/uL (1.8-7.7); NEUTROPHILS % (AUTO) 83.8 % (40.0-70.0); PLATELET COUNT (AUTO) 245 K/uL (130-430); RED BLOOD CELL COUNT(AUTO) 4.07 MIL/uL (4.2-6.2); RED CELL DISTRIBUTION WIDTH 11.9 % (9.0-15.0); WHITE BLOOD COUNT (AUTO) 9.3 K/uL (4.8-10.8)
--- NOTE | 2017-05-03 07:06 | NUR ---
Closing Notes Pt in stable condition. No acute distress noted. VSS. IV intact. All needs met throughout shift. Will endorse care to am nurse.
[2017-05-03 07:18] LABS: CALCIUM 8.8 mg/dL (8.4-11.0); CREATININE 0.67 mg/dL (0.55-1.30)
[2017-05-03 07:40] LABS: POTASSIUM 2.9 mmol/L (3.5-5.1)
--- NOTE | 2017-05-03 07:55 | NUR ---
Opening Note Report received form NOC nurse. Patient is in stable condition and is currently resting in bed. IV is on the right hand 22g @tko. Bed is in low position. Call light is within reach. Will continue to monitor.
[2017-05-03] MEDS ORDERED: POTASSIUM CHLORIDE 20 MEQ TAB.PRT.SR PO ONE (08:45)
[2017-05-03] MEDS: HYDROCHLOROTHIAZIDE 25 MG TABLET (HCTZ) PO SCH (09:33)
[2017-05-03] MEDS: amLODIPine BESYLATE 10 MG TABLET PO SCH (09:34)
[2017-05-03] MEDS: glipiZIDE XL 5 MG TAB ( GLUCOTROL XL) PO SCH ×2 (09:34→21:37)
[2017-05-03] MEDS: LOSARTAN POTASSIUM 50 MG TABLET (COZAAR) PO SCH (09:34)
[2017-05-03] MEDS: PANTOPRAZOLE SODIUM 40 MG/VIAL (PROTONIX) IVP SCH ×2 (09:35→22:22)
[2017-05-03] MEDS: cloNIDine HCL 0.1 MG TABLET PO SCH ×3 (09:35→21:37)
[2017-05-03] MEDS: POTASSIUM CHLORIDE 20 MEQ TAB.PRT.SR PO SCH ×2 (09:35→21:37)
[2017-05-03] MEDS: PARoxetine HCL 20 MG TABLET PO SCH ×2 (09:35→21:37)
[2017-05-03] MEDS: HYDROcodone/ACETAMIN 5-325 MG TAB (NORCO/ VICODIN) PO PRN ×3 (09:48→22:03)
--- NOTE | 2017-05-03 10:00 | NUR ---
Pain med Medicated the patient with [facility] for neck pain. Will reassess.
[2017-05-03] MEDS: INSULIN REGULAR, HUMAN 100 UNITS/ML, 10 ML VIAL (novoLIN R) SUBCUT PRN ×2 (11:05→21:41)
--- NOTE | 2017-05-03 12:03 | NUR ---
Rounds Patient is resting in bed. Call light is within reach. Will continue to monitor.
--- NOTE | 2017-05-03 12:13 | NUR ---
DC Planning: Per dr. Jonathan jones pt. transfer to [facility] vs to home with insurance arranging for out patient neck biopsy. S/w patricia Ann at [facility] # [phone], he requested pt. dc home for out pt. neck biopsy which his [employer] planners, Malaika will arrange for the pt. Malaika # [phone], fax# [phone]. Dr. Castillo made aware and to order spacific procedure needs and to fax to Malaika to process. Addendum: 05/03/17 at 1338 by Ashley Garcia RN >> Informed pt. at bedside that her insurance consultant will arrange out patient for neck bx rather than transferring her to another hospital. Pt. agreed with the dc home today. She stated "I have pain in my neck but I can tolerate that. I rather go home with the out pt bx." Rylie made aware and to confirm with md for home meds, IV vs. po ABX, and pain med.
[2017-05-03] MEDS: AZITHROMYCIN 500 MG in NS 250 ML IV SCH (12:32)
--- NOTE | 2017-05-03 14:05 | NUR ---
Rounds Patient is resting in bed. Call light is within reach.
--- NOTE | 2017-05-03 16:40 | NUR ---
Spoke with MD Spoke with Md regarding dc home to and have the patient follow up for neck biopsy as an outpatient. MD stated that it is not advisable to dc the patient home d/t the low K level. Will have CM follow up on dc tomorrow.
--- NOTE | 2017-05-03 17:08 | NUR ---
ATTENDING MD DR BAEZA WAS CALLED RE: TO INFORM HIM THAT INSURANCE DENIED HIS BIOPSY IN THE HOSP AND IT CAN BE DONE OUTPT. SPOKE TO SAJI
--- NOTE | 2017-05-03 18:36 | NUR ---
Closing Note Patient is resting in bed. Significant other is a the bedside. Iv is on the right hand 22g running @tko. Bed is in low position. Call light is within reach. Will endorse care the oncoming nurse.
--- NOTE | 2017-05-03 19:50 | NUR ---
NOTES; SEEN PT SITTING UP IN BED. A/A/O X4, NO ACUTE DISTRESS NOTED. VITAL SIGNS STABLE, AFEBRILE. RASHES ALL OVER UPPER EXT NOTED. PT IS ON PRN BENADRYL FOR ITCHING. IV SALINE LOCK TO THE RT HAND WITH REDNESS NOTED. WILL RESTART NEW IV LINE. PT DENIES ANY PAIN AT THIS TIME. CALL VICENTE USE TEACHING DONE. PT VERBALIZED UNDERSTANDING. BED LOCKED AND IN LOW POSITION, BED ALARM ON. SIDE RAILS UP X3, CALL LIGHT WITHIN REACH. FAMILY AT BEDSIDE WITH GOOD SUPPORT.
--- NOTE | 2017-05-03 21:46 | NUR ---
MEDS; SCHEDULED PO MEDICATION ADMINISTERED. PT TOLERATED MEDS WELL. BLOOD SUGAR FOUND TO BE 211. INSULIN SLIDING SCALE ADMINISTERED.
--- NOTE | 2017-05-03 22:06 | NUR ---
NOTES; RESTARTED NEW IV ON THE RT FOREARM, GAUGE 22. PT TOLERATED IV INSERTION WELL.
--- NOTE | 2017-05-04 | NUR ---
NOTES; APPEARED TO BE SLEEPING, EYES CLOSED. RESPIRATION EVEN AND UNLABORED. NO ACUTE DISTRESS NOTED. SAFETY MEASURES IN PROGRESS.
[2017-05-04] MEDS: DIPHENHYDRAMINE INJ 50 MG/ML VIAL IVP PRN ×3 (01:51→11:57)
--- NOTE | 2017-05-04 02:00 | NUR ---
NOTES; APPEARED TO BE SLEEPING, EYES CLOSED. RESPIRATION EVEN AND UNLABORED. NO ACUTE DISTRESS NOTED. SAFETY MEASURES IN PROGRESS.
[2017-05-04 03:20] VITALS: BP_SYST 141
--- NOTE | 2017-05-04 04:00 | NUR ---
NOTES; AWAKE, IN BED. NO APPARENT DISTRESS NOTED. SAFETY MEASURES IN PROGRESS.
[2017-05-04] MEDS: HYDROcodone/ACETAMIN 5-325 MG TAB (NORCO/ VICODIN) PO PRN ×4 (05:41→21:25)
--- NOTE | 2017-05-04 05:51 | NUR ---
NOTES; NORCO 5MG/325MG 2TABS PO FOR 9/10 GENERALIZED PAIN. BENADRYL 25MG IVP ADMINISTERED BY KRISTINA SOTO FOR ITCHING.
--- NOTE | 2017-05-04 06:47 | NUR ---
NOTES; BLOOD SUGAR FOUND TO BE 119. NO INSULIN NEEDED PER SLIDING SCALE COVERAGE.
--- NOTE | 2017-05-04 06:52 | NUR ---
NOTED; RASHES SPREAD TO LOWER EXT. WILL ENDORSE TO AM NURSE TO INFORM MD WHEN MAKING ROUNDS.
[2017-05-04 07:03] LABS: CALCIUM 8.7 mg/dL (8.4-11.0); CREATININE 0.72 mg/dL (0.55-1.30); POTASSIUM 3.7 mmol/L (3.5-5.1)
[2017-05-04 08:00] VITALS: BP_SYST 141
--- NOTE | 2017-05-04 08:00 | NUR ---
Opening Note Report received form Mildred MUD CAR WORKER. Patient is in stable condition and is currently resting in bed. IV is on the RFA 22g currently saline locked. Patient is a rash that has spread throughout her body throughout the night. Will inform dr. Castillo. Will continue to monitor.
[2017-05-04] MEDS: PARoxetine HCL 20 MG TABLET PO SCH ×2 (09:05→21:23)
[2017-05-04] MEDS: amLODIPine BESYLATE 10 MG TABLET PO SCH (09:05)
[2017-05-04] MEDS: POTASSIUM CHLORIDE 20 MEQ TAB.PRT.SR PO SCH ×2 (09:05→21:24)
[2017-05-04] MEDS: glipiZIDE XL 5 MG TAB ( GLUCOTROL XL) PO SCH ×2 (09:06→21:32)
[2017-05-04] MEDS: cloNIDine HCL 0.1 MG TABLET PO SCH ×3 (09:06→21:24)
[2017-05-04] MEDS: LOSARTAN POTASSIUM 50 MG TABLET (COZAAR) PO SCH (09:06)
[2017-05-04] MEDS: PANTOPRAZOLE SODIUM 40 MG/VIAL (PROTONIX) IVP SCH ×2 (09:07→21:32)
[2017-05-04] MEDS: HYDROCHLOROTHIAZIDE 25 MG TABLET (HCTZ) PO SCH (09:07)
[2017-05-04] MEDS ORDERED: MAGNESIUM SULFATE 4 GM in D5W 250 ML IV ONE (09:45)
--- NOTE | 2017-05-04 09:50 | NUR ---
DC Planning: Faxed FS, updated progress notes, Lymp node biopsy order to [facility] # [phone], fax# [phone] and patricia Ann at [facility] # [phone] x [phone], fax# [phone]. Addendum: 05/04/17 at 1045 by Ashley Garcia RN >> F/U call to [facility] to confirm received my fax. Per Malaika " once she receives the order she will process it but may not be done today dt weekend surgical scheduler is not available." Dr. Castillo made aware. Per . he will keep the pt. in hospital dt pt's new developed rashes all over body and swollen throat. Seth made aware that the md holds discharging for now.
--- NOTE | 2017-05-04 10:00 | NUR ---
MD Rounds Dr. Castillo rounded on the patient. stated to hold dc for today and to inform Dr. Jaeger of her rash.
[2017-05-04 10:07] LABS: HEPATITIS B SURFACE AG Negative (Negative); HEPATITIS C VIRUS AB <0.1 s/co ratio (0.0-0.9)
[2017-05-04] MEDS ORDERED: CALAMINE 120 ML TOPICAL LOTION TP PRN (11:15)
[2017-05-04 11:25] VITALS: BP_SYST 122
[2017-05-04] MEDS: DOXYCYCLINE HYCLATE 100 MG in D5W 100 ML IV SCH (12:00)
--- NOTE | 2017-05-04 12:02 | NUR ---
Rounds Patient is resting in bed. Call light is within reach.
--- NOTE | 2017-05-04 13:26 | NUR ---
Nutrition F/U Admitting Diagnosis Abd pain, mild protein malnutrition Reviewed Pertinent Medical/Surgical Hx Medical Record Patient Medical History Comment: DM type 2, HTN, depression per MD notes Subjective Information Pt seen resting in bed at time of RD visit. Pt reported that she has been eating fine. Plans to hold D/C per MD order d/t pt's new rashes and swollen throat per case management notes. pt reported BM x1 today, no problems. Per MD orders, plans for case management to arrange outpatient lymph node Bx to r/o lymphoma. Pt is likely meeting optimal nutritional needs. Pt was not interested in nutrition education. Current Diet Order/Nutrition Support Regular, CCHO low carb-45 gm x4 days Patient/Significant Other Able To Verbalize Education Provided Not Indicated Pertinent Medications hydrodiuril, glipizide, zofran SSI, k-dur Pertinent Labs BG 135 H, POC BG 138 H, LDL 106 H (04/28/17), HDL 28 H (04/28/17), Triglycerides 220 H (04/28/17) Height (Feet) 5 feet Height (Inches) 3.00 inches Weight (Pounds) 213 pounds (admission) Weight (Calculated Kilograms) 96.920532 kilograms Patient Weight 96.615 kg Body Mass Index 37.73 kg/m2 Usual Weight 220 lbs %UBW 97 %IBW 187 [place]/Adjusted Body Weight IBW: 115 lb, 52 kg. Adj IBW (obesity): 140 lb, 64 kg Recent Weight Change Yes - 7 lb wt loss within past month d/t abd pain; 3% significant wt change Weight Status Obese Food Allergies Yes - Onions; reaction: vomiting/hives Usual Diet At Home Tries to monitor BG levels; eats more fish and tries to eat less red meat Skin Integrity Comment: Karel scale: 20; per nursing notes, anterior lateral L posterior R back: generalized rashes Current % PO Good; 78% average x7 meals Estimated Energy Expenditure (kcals/day) 1553-2654 kcal/day (BEE x 1-1.2 CBW for maintenance) Estimated Protein Required (g/day) 42-52 gm/day (0.8-1 gm/kg IBW for maintenance) Estimated Fluid Required (l/day) 1.6-2 L/day (1 ml/kcal/day for maintenance) Problem/Etiology/Signs/Symptoms Complicated GI function related to abd pain as evidenced by need for GI workups and pending colonoscopy. *no longer applicable Altered nutrition-related labs related to endocrine dysfunction as evidenced by elevated BG and POC BG lab values. Expected Outcomes/Goals - Monitor advancement of diet, appetite, and PO intakes w/ goal of pt meeting at least 50% of estimated nutritional needs, labs trending WNL, normal GI function, and skin integrity/wt maintenance Dietitian Recommendations * Recommend continuing regular, CCHO low carb-45 gm diet per MD Follow Up High Moderate
--- NOTE | 2017-05-04 13:32 | NUR ---
Dietitian Recommendations * Recommend continuing regular, CCHO low carb-45 gm diet per LP, RD Please refer to Nutrition Assessment for details.
[2017-05-04] MEDS: AZITHROMYCIN 500 MG in NS 250 ML IV SCH (13:38)
--- NOTE | 2017-05-04 14:03 | NUR ---
Endorsed Care Care endorsed to Hari RN. Patient is resting in bed. Call light is within reach and bed is in low position.
--- NOTE | 2017-05-04 14:05 | NUR ---
Patient received Awake, alert and oriented x4, states mild pain, states she has itching, discussed plan of care with the patient, ADVERTISING STATISTICAL CLERK at the bedside assisting the patient, bed in lowest position, two side rails up, fall precautions in place.
--- NOTE | 2017-05-04 14:27 | NUR ---
Vancomycin/Mag rider Vancomycin still infusing, started at a slower rate due to patient discomfort with IV, IV site is patent with no signs of infiltration at this time, Mag rider to be infused once the Vancomycin is complete, will follow up.
--- NOTE | 2017-05-04 14:56 | NUR ---
RN Rounds Patient resting in bed, awake, states tolerable pain level at this time, patient states her last blood pressure measurement was lower than normal but within normal limits so she does not want to take her blood pressure medication at this time, no other needs at this time, bed in lowest position, two side rails up, call light within reach, fall and aspiration precautions in place.
[2017-05-04 15:33] VITALS: BP_SYST 116
[2017-05-04] MEDS: INSULIN REGULAR, HUMAN 100 UNITS/ML, 10 ML VIAL (novoLIN R) SUBCUT PRN (17:10)
--- NOTE | 2017-05-04 17:15 | NUR ---
RN Rounds/Magnesium/Pain medication Patient resting in bed awake, states severe pain level and itching, educated on medications and potential side effects, patient verbalized understanding and tolerated well, Magnesium rider hung at this time and infusing well, IV site is patent with no signs of infiltration, blood glucose assessed and insulin coverage given per MD orders, no other needs at this time, bed in lowest position, two side rails up, bed alarm on, fall and aspiration precautions in place.
--- NOTE | 2017-05-04 18:46 | NUR ---
Lab Per Dr. Jaeger request inquired about TB gold test being cancelled, s/w Kindra who stated that it was not cancelled just changed and the lab has been drawn and is pending.
--- NOTE | 2017-05-04 18:47 | NUR ---
Closing note Patient resting in bed, eyes closed, breathing is even and unlabored, no signs of distress, all needs met, will endorse report to NOC shift nurse, bed in lowest position, two side rails up, call light within reach, fall and aspiration precautions in place.
--- NOTE | 2017-05-04 19:20 | NUR ---
INITIAL NOTE Received report from evelia. Pt sitting up in bed in no apparent distress awake, alert and oriented. Multiple visitors at bedside. IV to R FA 22g patent. Call campos within reach. Encouraged pt to call for any assistance. Verbalized understanding.
[2017-05-04 20:03] VITALS: BP_SYST 134
--- NOTE | 2017-05-04 21:20 | NUR ---
ROUNDS/INSULILN DECLINED BY Pt Pt up in bed awake c/o itchiness and pain to entire body. VS stable. Administered routine medications including vistaril for itching and pain medication. BS 157. Pt declined insulin stating she believes perhaps this may be causing her hives. MD to be notified. Will continue to monitor pt.
[2017-05-04] MEDS: MAGNESIUM CHLORIDE 64 MG TABLET.DR PO SCH (21:23)
--- NOTE | 2017-05-04 21:44 | NUR ---
jamilah Castillo spoke with John
--- NOTE | 2017-05-04 21:50 | NUR ---
Spoke to on the phone Informed MD that patient refused insulin coverage for blood sugar of 157. MD stated ok, no new orders received. No s/s of hypo/hyperglycemia on patient. Will continue to monitor.
--- NOTE | 2017-05-04 22:35 | NUR ---
ROUNDS Pt sitting up in bed in no apparent distress on cell phone. Pain medication and vistaril effective per pt. Encouraged pt to use call campos for assistance. Verbalized understanding.
[2017-05-05 00:07] VITALS: BP_SYST 134
--- NOTE | 2017-05-05 00:15 | NUR ---
ROUNDS Pt sitting in bed with visitors at bedside. In no distress. Will continue to monitor.
--- NOTE | 2017-05-05 02:30 | NUR ---
ROUNDS pt sleeping soundly, breathing easy and unlabored. Call campos within reach.
--- NOTE | 2017-05-05 04:02 | NUR ---
ROUNDS Pt sleeping soundly. No distress. Bed in lowest position. Call campos within reach.
[2017-05-05 05:48] VITALS: BP_SYST 140
--- NOTE | 2017-05-05 06:32 | NUR ---
CLOSING NOTES Pt sleeping soundly easily arousable. BS 140 this am. Pt expressed hives and itching have improved. Will continue to monitor and endorse pts care to dayshift.
--- NOTE | 2017-05-05 07:47 | NUR ---
AM ROUNDS: No s/s of distress noted. Will continue to monitor.
[2017-05-05 08:13] VITALS: BP_SYST 148
[2017-05-05] MEDS: MAGNESIUM CHLORIDE 64 MG TABLET.DR PO SCH ×2 (08:18→20:11)
[2017-05-05] MEDS: PANTOPRAZOLE SODIUM 40 MG/VIAL (PROTONIX) IVP SCH ×2 (08:18→20:10)
[2017-05-05] MEDS: HYDROcodone/ACETAMIN 5-325 MG TAB (NORCO/ VICODIN) PO PRN ×2 (08:19→20:12)
[2017-05-05] MEDS: glipiZIDE XL 5 MG TAB ( GLUCOTROL XL) PO SCH ×2 (08:19→20:13)
[2017-05-05] MEDS: POTASSIUM CHLORIDE 20 MEQ TAB.PRT.SR PO SCH ×2 (08:20→20:13)
[2017-05-05] MEDS: PARoxetine HCL 20 MG TABLET PO SCH ×2 (08:20→20:13)
[2017-05-05] MEDS: LOSARTAN POTASSIUM 50 MG TABLET (COZAAR) PO SCH (08:20)
[2017-05-05] MEDS: cloNIDine HCL 0.1 MG TABLET PO SCH ×3 (08:21→20:13)
[2017-05-05] MEDS: amLODIPine BESYLATE 10 MG TABLET PO SCH (08:22)
[2017-05-05] MEDS: HYDROCHLOROTHIAZIDE 25 MG TABLET (HCTZ) PO SCH (08:22)
--- NOTE | 2017-05-05 09:00 | NUR ---
IV Discontinued noted IV infiltrated right arm, tender to touch, IV discontinued, canula intact, no bleeding, pt tolerated well. will continue to monitor.
--- NOTE | 2017-05-05 10:07 | NUR ---
PATIENT RESTING: Patient resting quietly. No acute distress noted. Will continue to monitor.
[2017-05-05] MEDS: DIPHENHYDRAMINE INJ 50 MG/ML VIAL IVP PRN (11:19)
[2017-05-05 11:30] VITALS: BP_SYST 143
--- NOTE | 2017-05-05 12:08 | NUR ---
PATIENT RESTING: Patient resting quietly. No acute distress noted. Well continue to monitor.
--- NOTE | 2017-05-05 14:26 | NUR ---
PATIENT RESTING: Patient resting quietly. No acute distress noted. Will continue to monitor.
--- NOTE | 2017-05-05 16:01 | NUR ---
PATIENT RESTING: Patient resting quietly. No acute distress noted. Will continue to monitor.
[2017-05-05] MEDS: INSULIN REGULAR, HUMAN 100 UNITS/ML, 10 ML VIAL (novoLIN R) SUBCUT PRN ×2 (16:59→20:18)
--- NOTE | 2017-05-05 18:25 | NUR ---
CLOSING NOTE: All needs met. No change in assessment. Will endorse to NOC shift nurse.
[2017-05-05 20:00] VITALS: BP_SYST 138
--- NOTE | 2017-05-05 20:00 | NUR ---
Initial Notes Received patient resting in bed, awake, alert, oriented. Patient denies any acute distress at this time. Reporting pain in her throat, will medicated patient per MD orders. Vital signs stable. Breathing is even and unlabored on room air. IV site patent/clean/dry. Educated patient regarding use of call light for assistance and fall precautions, patient verbalized understanding. Needs addressed. Call light in hand.
--- NOTE | 2017-05-05 22:17 | NUR ---
Rounds Patient resting in bed, awake. Patient denies any acute distress or pain at this time. Breathing is even and unlabored. Needs addressed. Call light in hand, will continue to monitor.
--- NOTE | 2017-05-06 | NUR ---
Rounds Patient resting in bed with eyes closed, easily aroused. Patient denies any acute distress or pain at this time. Breathing is even and unlabored. Redressed IV site due to dressing becoming loose. Needs addressed. Call light in hand.
[2017-05-06 00:27] VITALS: BP_SYST 120
--- NOTE | 2017-05-06 02:12 | NUR ---
Rounds Patient resting in bed with eyes closed. No acute distress noted, breathing is even and unlabored. Call light in hand, fall precautions in place.
--- NOTE | 2017-05-06 04:18 | NUR ---
Rounds Patient resting in bed with eyes closed, easily aroused. No acute distress or pain reported. Breathing is even and unlabored. Needs addressed. Call light in hand, fall precautions in place.
[2017-05-06] MEDS: HYDROcodone/ACETAMIN 5-325 MG TAB (NORCO/ VICODIN) PO PRN ×3 (04:39→21:09)
[2017-05-06 06:20] VITALS: BP_SYST 144
[2017-05-06] MEDS: INSULIN REGULAR, HUMAN 100 UNITS/ML, 10 ML VIAL (novoLIN R) SUBCUT PRN ×2 (06:22→17:34)
--- NOTE | 2017-05-06 06:36 | NUR ---
Closing Notes Patient resting in bed with eyes closed, easily aroused. Patient denies any acute distress or pain at this time. Breathing is even and unlabored. IV site patent/clean/dry, no S/S infection/infiltration noted. Needs addressed throughout shift. Patient refusing insulin sliding scale for BS of 154 this morning. Call light in hand, fall precautions in place. Will continue to monitor for changes and safety, and endorse all patient care/needs to oncoming nurse.
[2017-05-06 06:37] LABS: EOSINOPHILS # (AUTO) 0.1 K/uL (0.0-0.4); EOSINOPHILS % (AUTO) 0.9 % (0.0-4.0); HEMATOCRIT 39.1 % (36-48); HEMOGLOBIN 12.9 g/dL (12.0-16.0); LYMPHOCYTES # (AUTO) 0.5 K/uL (1.0-5.5); LYMPHOCYTES % (AUTO) 3.5 % (20.5-51.5); MEAN CORPUSCULAR HEMOGLOBIN 29 pg (27-31); MEAN CORPUSCULAR HGB CONC 33 % (32-36); MEAN CORPUSCULAR VOLUME 86 fL (79.0-98.0); MONOCYTES # (AUTO) 0.8 K/uL (0.0-1.0); MONOCYTES % (AUTO) 6.5 % (1.7-9.3); NEUTROPHILS # (AUTO) 11.5 K/uL (1.8-7.7); PLATELET COUNT (AUTO) 304 K/uL (130-430); RED BLOOD CELL COUNT(AUTO) 4.53 MIL/uL (4.2-6.2); RED CELL DISTRIBUTION WIDTH 12.4 % (9.0-15.0); WHITE BLOOD COUNT (AUTO) 12.9 K/uL (4.8-10.8)
[2017-05-06 07:09] LABS: ALBUMIN 2.8 g/dL (3.4-4.8); CALCIUM 9.1 mg/dL (8.4-11.0); CREATININE 0.67 mg/dL (0.55-1.30); POTASSIUM 3.9 mmol/L (3.5-5.1); TOTAL BILIRUBIN 0.7 mg/dL (0.0-1.0)
--- NOTE | 2017-05-06 08:00 | NUR ---
Patient at rest, A/Ox4. Left FA, #22, SL. Ambulatory. Generalized urticaria noted, but otherwise in no distress. Call light in place, bed locked at the lowest position. Will continue to monitor.
[2017-05-06] MEDS: LOSARTAN POTASSIUM 50 MG TABLET (COZAAR) PO SCH (08:03)
[2017-05-06] MEDS: PARoxetine HCL 20 MG TABLET PO SCH ×2 (08:03→21:00)
[2017-05-06] MEDS: PANTOPRAZOLE SODIUM 40 MG/VIAL (PROTONIX) IVP SCH ×2 (08:04→23:04)
[2017-05-06] MEDS: POTASSIUM CHLORIDE 20 MEQ TAB.PRT.SR PO SCH ×2 (08:04→21:00)
[2017-05-06] MEDS: HYDROCHLOROTHIAZIDE 25 MG TABLET (HCTZ) PO SCH (08:04)
[2017-05-06] MEDS: amLODIPine BESYLATE 10 MG TABLET PO SCH (08:04)
[2017-05-06] MEDS: MAGNESIUM CHLORIDE 64 MG TABLET.DR PO SCH ×2 (08:09→21:01)
[2017-05-06] MEDS: glipiZIDE XL 5 MG TAB ( GLUCOTROL XL) PO SCH ×2 (08:09→21:00)
[2017-05-06] MEDS: cloNIDine HCL 0.1 MG TABLET PO SCH ×3 (09:00→20:59)
[2017-05-06 09:16] LABS: NEUTROPHILS % (AUTO) 89.1 % (40.0-70.0)
--- NOTE | 2017-05-06 09:42 | NUR ---
PATIENT IS RESTING, NO SIGNS OF DISTRESS NOTED.
--- NOTE | 2017-05-06 11:40 | NUR ---
PATIENT BLOOD SUGAR IS 135. NO COVERAGE NEEDED.
[2017-05-06 12:13] VITALS: BP_SYST 125
--- NOTE | 2017-05-06 13:00 | NUR ---
OPENING NOTE: RECEIVED PATIENT FROM KRISTINA HOFFMANN. PATIENT RESTING IN BED, FRIEND AT BEDSIDE. PATIENT AAOX4. NO ACUTE SIGNS OF RESP DISTRESS, NO SOB. SKIN WARM DRY AND COLOR NORMAL FOR ETHNICITY. IV INTACT AND PATENT, NO REDNESS/SWELLING/PAIN TO SITE. BED AT LOWEST POSITION, CALL LIGHT IN REACH.
[2017-05-06] MEDS: DIPHENHYDRAMINE INJ 50 MG/ML VIAL IVP PRN ×2 (13:36→23:01)
--- NOTE | 2017-05-06 16:14 | NUR ---
ROUNDING: PATIENT AAOX4. RESTING IN BED, HOB ELEVATED. NO ACUTE SIGNS OF RESP DISTRESS, NO SOB. SKIN WARM DRY AND COLOR NORMAL FOR ETHNICITY. IV INTACT AND PATENT, NO REDNESS/SWELLING/PAIN TO SITE. BED AT LOWEST POSITION, CALL LIGHT IN REACH.
[2017-05-06 16:45] VITALS: BP_SYST 123
--- NOTE | 2017-05-06 17:30 | NUR ---
PATIENT REFUSED INSULIN: PATIENT REFUSED INSULIN. PATIENT EDUCATED ON THE CIRCUMSTANCE WHEN REFUSING INSULIN. PATIENT VERBALIZED UNDERSTANDING. PAGING DR. BAEZA. WILL MONITOR CLOSELY. PATIENT DENIES DIZZINESS/LIGHTHEADED, COOLNESS, SWEATING, NUMBNESS AND TINGLING AT THIS TIME. CONTINUE TO MONITOR.
--- NOTE | 2017-05-06 17:35 | NUR ---
PAGED PAGED ALEM ROLDAN AT [phone] SPOKE WITH SHARON.
--- NOTE | 2017-05-06 17:49 | NUR ---
DR. BAEZA CALLED BACK: DR. BAEZA CALLED BACK AND HE IS AWARE THAT PATIENT REFUSED INSULIN. PER DR. BAEZA TO D/C INSULIN. DR. BAEZA ALSO AWARE THAT PATIENT STATED THAT SHE IS STILL ITCHY AND NO MEDICATION IS RELIEVING IT. NO NEW ORDERS. EDUCATED PATIENT. PATIENT VERBALIZED UNDERSTANDING.
--- NOTE | 2017-05-06 18:05 | NUR ---
CLOSING NOTE: PATIENT RESTING IN BED. HOB ELEVATED. PATIENT AAOX4. NO ACUTE SIGNS OF RESP DISTRESS. NO SOB. SKIN WARM DRY AND COLOR NORMAL FOR ETHNICITY. IV INTACT AND PATENT, NO REDNESS/SWELLING/PAIN TO SITE. DENIES DIZZINESS/LIGHTHEADED, NUMBNESS/TINGLING, COOLNESS, SWEATING AND SHAKING. PATIENT VERBALIZED THE S/S OF HYPOGLYCEMIA AND HYPERGLYCEMIA. BED AT LOWEST POSITION, CALL LIGHT IN REACH. WILL ENDORSE PLAN OF CARE TO KRISTINA ESPINOZA.
[2017-05-06 19:00] VITALS: BP_SYST 121
[2017-05-06 20:00] VITALS: BP_SYST 121
[2017-05-07 00:32] VITALS: BP_SYST 117
[2017-05-07] MEDS: DIPHENHYDRAMINE INJ 50 MG/ML VIAL IVP PRN ×3 (03:11→23:36)
[2017-05-07] MEDS: ONDANSETRON HCL 4 MG/2 ML VIAL IVP PRN (05:12)
[2017-05-07 06:01] VITALS: BP_SYST 124
--- NOTE | 2017-05-07 06:45 | NUR ---
pt.presents rash;profuse distribution,itch:genralized.pt.is ordered vistaril:25mg p q-4rs.routine.benadryl:25mg q-4hrs;ivp.prn. i have restarted the iv access lt.hand.pt.c/o nausea x1 i have adminstered zofran;4mg ivp.the diet was corrected;regular d/c to con/cho.
[2017-05-07 07:50] LABS: BASOPHILS % (AUTO) 0.1 % (0.0-2.0); EOSINOPHILS # (AUTO) 0.2 K/uL (0.0-0.4); EOSINOPHILS % (AUTO) 1.7 % (0.0-4.0); HEMATOCRIT 35.9 % (36-48); HEMOGLOBIN 12.1 g/dL (12.0-16.0); LYMPHOCYTES # (AUTO) 0.7 K/uL (1.0-5.5); LYMPHOCYTES % (AUTO) 5.9 % (20.5-51.5); MEAN CORPUSCULAR HEMOGLOBIN 29 pg (27-31); MEAN CORPUSCULAR HGB CONC 34 % (32-36); MEAN CORPUSCULAR VOLUME 86 fL (79.0-98.0); MONOCYTES # (AUTO) 0.8 K/uL (0.0-1.0); NEUTROPHILS # (AUTO) 9.9 K/uL (1.8-7.7); NEUTROPHILS % (AUTO) 85.3 % (40.0-70.0); PLATELET COUNT (AUTO) 280 K/uL (130-430); RED BLOOD CELL COUNT(AUTO) 4.16 MIL/uL (4.2-6.2); RED CELL DISTRIBUTION WIDTH 12.4 % (9.0-15.0); WHITE BLOOD COUNT (AUTO) 11.6 K/uL (4.8-10.8)
[2017-05-07 08:00] VITALS: BP_SYST 145
--- NOTE | 2017-05-07 08:00 | NUR ---
OPENING NOTE: PATIENT RESTING IN BED. NO ACUTE SIGS OF RESP DISTRESS, NO SOB. SKIN WAR DRY. DENIES DIZZINESS/LIGHTHEADED, NUMBNESS/TINGLING, COOLNESS, SWEATING AND SHAKING. IV INTACT, NO REDNESS/SWELLING. BED AT LOWEST POSITION, CALL LIGHT IN REACH.
[2017-05-07] MEDS: PANTOPRAZOLE SODIUM 40 MG/VIAL (PROTONIX) IVP SCH ×2 (08:57→21:56)
[2017-05-07] MEDS: glipiZIDE XL 5 MG TAB ( GLUCOTROL XL) PO SCH ×2 (09:00→21:55)
[2017-05-07] MEDS: amLODIPine BESYLATE 10 MG TABLET PO SCH (09:01)
[2017-05-07] MEDS: POTASSIUM CHLORIDE 20 MEQ TAB.PRT.SR PO SCH ×2 (09:01→21:55)
[2017-05-07] MEDS: cloNIDine HCL 0.1 MG TABLET PO SCH ×3 (09:01→21:54)
[2017-05-07] MEDS: PARoxetine HCL 20 MG TABLET PO SCH ×2 (09:01→21:55)
[2017-05-07] MEDS: LOSARTAN POTASSIUM 50 MG TABLET (COZAAR) PO SCH (09:02)
[2017-05-07] MEDS: HYDROCHLOROTHIAZIDE 25 MG TABLET (HCTZ) PO SCH (09:02)
[2017-05-07] MEDS: HYDROcodone/ACETAMIN 5-325 MG TAB (NORCO/ VICODIN) PO PRN ×2 (09:03→12:59)
[2017-05-07] MEDS: MAGNESIUM CHLORIDE 64 MG TABLET.DR PO SCH ×2 (09:05→22:01)
--- NOTE | 2017-05-07 10:00 | NUR ---
ROUNDING: AM MEDS GIVEN PER MD ORDERS, PATIENT TOLERATED WELL. NO ACUTE SIGNS OF RESP DISTRESS, NO SOB. IV INTACT, NO REDNESS/SWELLING/PAIN TO SITE. BED AT LOWEST POSITION, CALL LIGHT IN REACH.
[2017-05-07] MEDS ORDERED: methylPREDNISolone SOD SUCC 40 MG/ML VIAL IVP ONE (11:45)
--- NOTE | 2017-05-07 12:00 | NUR ---
ROUNDING: PATIENT AAOX4. NO ACUTE SIGNS OF RESP DISTRESS. IV INTACT, NO REDNESS/SWELLING TO SITE. BED AT LOWEST POSITION, CALL LIGHT IN REACH.
[2017-05-07 12:22] VITALS: BP_SYST 109
[2017-05-07 12:25] LABS: CALCIUM 8.8 mg/dL (8.4-11.0); CREATININE 0.66 mg/dL (0.55-1.30); POTASSIUM 4.3 mmol/L (3.5-5.1)
--- NOTE | 2017-05-07 14:29 | NUR ---
ROUNDING: PATIENT RESTING IN BED. NO ACUTE SIGNS OF RESP DISTRESS, NO SOB. SKIN COLOR NORMAL FOR ETHNICITY. IV INTACT AND PATENT, NO REDNESS/SWELLING TO SITE. BED AT LOWEST POSITION, CALL LIGHT IN REACH.
--- NOTE | 2017-05-07 16:00 | NUR ---
ROUNDING: PATIENT RESTING IN BED. NO ACUTE SIGNS OF RESP DISTRESS, NO SOB. IV INTACT, NO REDNESS/SWELLING. BED AT LOWEST POSITION, CALL LIGHT IN REACH.
[2017-05-07 16:19] VITALS: BP_SYST 117
--- NOTE | 2017-05-07 18:21 | NUR ---
CLOSING NOTE: PATIENT RESTING IN BED. DENIES PAIN AT THIS TIME. NO ACUTE SIGNS OF RESP DISTRESS, NO SOB. SKIN WARM DRY AND COLOR NORMAL FOR ETHNICITY. IV INTACT. NO REDNESS/SWELLING TO SITE. BED AT LOWEST POSITION, CALL LIGHT IN REACH. DENIES DIZZINESS/LIGHTHEADED, COOLNESS AND SWEATING. WILL ENDORSE PLAN OF CARE TO KRISTINA ESPINOZA.
[2017-05-07] MEDS ORDERED: DEXTROSE 50% JECT 50 ML DISP.SYRIN IVP PRN (18:45)
[2017-05-07 20:00] VITALS: BP_SYST 128
--- NOTE | 2017-05-07 20:00 | NUR ---
INITIAL NOTES: PT A/A/O X4, NO ACUTE DISTRESS NOTED. VITAL SIGNS STABLE, AFEBRILE. GENERALIZED RASHES ALL OVER NOTED. PT IS ON PRN BENADRYL AND VISTARIL ROUTINE FOR ITCHING. IV SALINE LOCK TO THE LEFT HAND IS INFILTRATED ; WILL RESTART NEW IV LINE. PT DENIES ANY PAIN AT THIS TIME. CALL VICENTE WITH IN REACH ;INSTRUCTED PT TO CALL FOR ANY ASSISTANCE . BED LOCKED AND IN LOW POSITION, BED ALARM ON. SIDE RAILS UP X2; WILL CONTINUE TO MONITOR.
--- NOTE | 2017-05-07 21:30 | NUR ---
NEW IV : NEW IV ACCESS STARTED TO THE R WRIST 22 G, GOOD BLOOD RETURN NOTED ;IV FLUSHED WELL ;OLD IV CATH REMOVED , TIP IS INTACT . WILL CONTINUE TO MONITOR. Addendum: 05/08/17 at 0014 by Jethro Davis RN AFTER REMOVING IV , DRESSING APPLIED , NO ACTIVE BLEEDING NOTED
[2017-05-07] MEDS: methylPREDNISolone SOD SUCC 40 MG/ML VIAL IVP SCH (21:56)
--- NOTE | 2017-05-07 22:00 | NUR ---
MEDICATION: DUE MEDS GIVEN ASPER ORDER . PT IS COMFORTABLE . WILL CONTINUE TO MONITOR.
[2017-05-07] MEDS: INSULIN REGULAR, HUMAN 100 UNITS/ML, 10 ML VIAL (novoLIN R) SUBCUT PRN (22:06)
--- NOTE | 2017-05-07 22:45 | NUR ---
SHOWER: PT STATED MD SAID SHE CAN HAVE A SHOWER , PER PT REQUEST PT TOOK SHOWER . SENIOR SQL DEVELOPER ASSISTED PT ;PT IS COMFORTABLE .
[2017-05-08] VITALS (7 sets, daily range): BP systolic 110–136
--- NOTE | 2017-05-08 00:16 | NUR ---
RN ROUNDS: PT IS SLEEPING AT THIS TIME, EASILY AROUSABLE ; WILL CONTINUE TO MONITOR.
--- NOTE | 2017-05-08 02:10 | NUR ---
RN ROUNDS: PT IS SLEEPING , NOT IN ANY ACUTE DISTRESS; WILL CONTINUE TO MONITOR.
[2017-05-08] MEDS: DIPHENHYDRAMINE INJ 50 MG/ML VIAL IVP PRN ×3 (04:05→19:05)
--- NOTE | 2017-05-08 04:10 | NUR ---
RN NOTES: PT C/O ITCHING , REQUESTED FOR BENADRYL; MEDICATED ASPER ORDER . WILL CONTINUE TO MONITOR.
[2017-05-08] MEDS: INSULIN REGULAR, HUMAN 100 UNITS/ML, 10 ML VIAL (novoLIN R) SUBCUT PRN ×4 (06:02→21:35)
--- NOTE | 2017-05-08 06:03 | NUR ---
RN NOTES: PT IS SLEEPING , EASILY AROUSABLE ; BS 224, 4 UNITS OF REGULAR INSULIN GIVEN PER ORDER .WILL CONTINUE TO MONITOR.
--- NOTE | 2017-05-08 06:34 | NUR ---
CLOSING NOTES: PT IS SLEEPING , RESPIRATION IS EVEN AND NONLABORED ; NOT IN ANY ACUTE DISTRESS; WILL CONTINUE TO MONITOR AND WILL ENDORSE TO NEXT SHIFT NURSE.
--- NOTE | 2017-05-08 07:56 | NUR ---
initial notes rec patient asleep but arousable to stimuli. ivl on the r wrist intact. no infiltration noted. resp easy and unlabored. no sob noted. bed in low position and side rails up and locked. call light within reached and knows when to call for assists. fall/asfety precatuion reinforced.
[2017-05-08] MEDS: PANTOPRAZOLE SODIUM 40 MG/VIAL (PROTONIX) IVP SCH ×2 (09:38→21:22)
[2017-05-08] MEDS: methylPREDNISolone SOD SUCC 40 MG/ML VIAL IVP SCH ×2 (09:38→21:22)
[2017-05-08] MEDS: POTASSIUM CHLORIDE 20 MEQ TAB.PRT.SR PO SCH ×2 (09:39→21:22)
[2017-05-08] MEDS: LOSARTAN POTASSIUM 50 MG TABLET (COZAAR) PO SCH (09:40)
[2017-05-08] MEDS: PARoxetine HCL 20 MG TABLET PO SCH ×2 (09:40→21:22)
[2017-05-08] MEDS: cloNIDine HCL 0.1 MG TABLET PO SCH ×3 (09:41→21:22)
[2017-05-08] MEDS: amLODIPine BESYLATE 10 MG TABLET PO SCH (09:42)
[2017-05-08] MEDS: glipiZIDE XL 5 MG TAB ( GLUCOTROL XL) PO SCH ×2 (09:42→21:22)
[2017-05-08] MEDS: MAGNESIUM CHLORIDE 64 MG TABLET.DR PO SCH ×2 (09:43→21:23)
[2017-05-08] MEDS: HYDROCHLOROTHIAZIDE 25 MG TABLET (HCTZ) PO SCH (09:43)
--- NOTE | 2017-05-08 10:00 | NUR ---
rounds due meds will be given plus benadryl. noted with gen body rash. pt went back to sleep after. no acute distress noted.
--- NOTE | 2017-05-08 12:00 | NUR ---
rounds due meds given as ordered. no hypo hyperglycemic reaction noted. sleeps at intervals.
--- NOTE | 2017-05-08 14:00 | NUR ---
rounds sleeps at intervals and call light within reached. bed in low position and side rails up and locked.
--- NOTE | 2017-05-08 17:53 | NUR ---
rounds no hypo hyperglycemic reaction noted. due meds given as ordered. pt ambulating to the br and satish well. offered assistance due to meds she is getting /makes her drowsy. but with steady gait.
--- NOTE | 2017-05-08 19:20 | NUR ---
closing notes benadryl 25 mg ivp given for gen body rash. no sob noted. family in the room with patient. stable , needs attended.
--- NOTE | 2017-05-08 20:00 | NUR ---
Initial Notes: PT is awake,talking ; noticed generalized rashes along with redness ; Vitals are stable .on room air ; denied any pain or discomfort at this time ; IV intact to the R wrist 22g,. Safety measures in place, side rails upx2 with bed in lowest, locked position, bed alarm on at all times. All needs met at this time. Call light in reach. Will continue to monitor.
[2017-05-08] MEDS: HYDROcodone/ACETAMIN 5-325 MG TAB (NORCO/ VICODIN) PO PRN (21:37)
--- NOTE | 2017-05-08 21:40 | NUR ---
MEDICATION: DUE MEDS GIVEN ; PT C/O PAIN IN HER NECK , NORCO 2 TABS GIVEN PER ORDER . ALL NEEDS MET ; WILL CONTTINUE TO MONITOR.
--- NOTE | 2017-05-09 00:09 | NUR ---
RN ROUNDS: PT IS SLEEPING, RESPIRATION IS EVEN AND NONLABORED ; WILL CONTINUE TO MONITOR.
--- NOTE | 2017-05-09 02:07 | NUR ---
RN ROUNDS: PT IS SLEEPING COMFORTABLY , NO S/S OF ANY DISTRESS NOTED ; RESPIRATION IS EVEN AND NONLABORED ; WILL CONTINUE TO MONITOR.
[2017-05-09 03:58] VITALS: BP_SYST 129
[2017-05-09] MEDS: HYDROcodone/ACETAMIN 5-325 MG TAB (NORCO/ VICODIN) PO PRN ×3 (04:03→20:35)
--- NOTE | 2017-05-09 04:03 | NUR ---
RN ROUNDS: PT IS AWAKE , C/O NECK PAIN 8/10 , MEDICATED WITH NORCO 2 TABS PER ORDER . WILL CONTINUE TO MONITOR.
[2017-05-09] MEDS: INSULIN REGULAR, HUMAN 100 UNITS/ML, 10 ML VIAL (novoLIN R) SUBCUT PRN ×4 (06:07→20:46)
--- NOTE | 2017-05-09 06:10 | NUR ---
RN NOTES: PT IS SLEEPING , EASILY AROUSABLE ; ; BS 216, 4 UNITS OF REGULAR INSULIN GIVEN PER ORDER ,DUE VISTARIL ALSO GIVEN EARLIER.WILL CONTINUE TO MONITOR.
--- NOTE | 2017-05-09 07:25 | NUR ---
REPORT GIVEN TO RN AT BEDSIDE .
--- NOTE | 2017-05-09 08:00 | NUR ---
AM SHIFT NOTE: RECEIVED PT A/O X4, C/O NECK PAIN /, SKIN WITH RASHES ON HER WHOLE BODY. CCHO DIET, AMBULATED WELL, VOIDING, BED AT LOW POSITION, CALL LIGHT WITHIN REACH.
[2017-05-09] MEDS: methylPREDNISolone SOD SUCC 40 MG/ML VIAL IVP SCH ×2 (09:32→20:37)
[2017-05-09] MEDS: POTASSIUM CHLORIDE 20 MEQ TAB.PRT.SR PO SCH (09:33)
[2017-05-09] MEDS: amLODIPine BESYLATE 10 MG TABLET PO SCH (09:34)
[2017-05-09] MEDS: LOSARTAN POTASSIUM 50 MG TABLET (COZAAR) PO SCH (09:35)
[2017-05-09] MEDS: HYDROCHLOROTHIAZIDE 25 MG TABLET (HCTZ) PO SCH (09:35)
[2017-05-09] MEDS: cloNIDine HCL 0.1 MG TABLET PO SCH ×3 (09:36→20:36)
[2017-05-09] MEDS: PARoxetine HCL 20 MG TABLET PO SCH ×2 (09:36→20:36)
[2017-05-09] MEDS: PANTOPRAZOLE SODIUM 40 MG/VIAL (PROTONIX) IVP SCH (09:37)
--- NOTE | 2017-05-09 09:40 | NUR ---
ROUNDING: ROUTINE MEDS GIVEN, PT TOLERATED WELL.
[2017-05-09] MEDS: glipiZIDE XL 5 MG TAB ( GLUCOTROL XL) PO SCH ×2 (10:00→20:35)
[2017-05-09] MEDS: DIPHENHYDRAMINE INJ 50 MG/ML VIAL IVP PRN ×3 (10:00→20:37)
[2017-05-09] MEDS: MAGNESIUM CHLORIDE 64 MG TABLET.DR PO SCH ×2 (10:01→20:37)
[2017-05-09 12:30] VITALS: BP_SYST 127
--- NOTE | 2017-05-09 12:50 | NUR ---
Rounding: Pt had lunch well.
[2017-05-09] MEDS ORDERED: LORATADINE 10 MG TABLET PO ONE (13:00)
--- NOTE | 2017-05-09 13:10 | NUR ---
MD ROUNDING: SEEN BY DR. BAEZA, ORDER CARRIED OUT.
--- NOTE | 2017-05-09 15:56 | NUR ---
DC Planning: Transfer order to [facility] vs[facility] for lympnode biopsy and skin biopsy. Lm with bonita Dai at [facility] # [phone] requesting her returning my call gomez to discuss arranging transfer pt. to [facility]. Addendum: 05/09/17 at 1621 by Ashley Garcia RN >> Also s/w MAKSIM Ann at [facility], requesting pt. transfer to [facility]. Informed him that md could not d/c pt. home and to f/u with outpatient lympnode bx and per hematology/onc consult recommendation for the pt. to get ans excision biopsy to rule out lymphoma as oon as possible. Seth will review the case and will call me back with the decision. Faxed updated progress notes,ID consult report, hematology/onc. consult report and transfer order to # [phone] attn: Seth.
[2017-05-09 16:50] VITALS: BP_SYST 122
--- NOTE | 2017-05-09 19:20 | NUR ---
Closing note: Pt's d/c plan was on hold and will continue with support care. endorsed to manufacturing operator nurse for continue care.
[2017-05-09 20:00] VITALS: BP_SYST 127
--- NOTE | 2017-05-09 20:00 | NUR ---
ROUNDS PATIENT IN BED, WATCHING TV, NOT IN DISTRESS, VITALS STABLE. DENIES ANY PAIN AND DISCOMFORT AT THIS TIME. ASSESSMENT DONE AND DOCUMENTED. SEE FLOWSHEET. NEEDS ATTENDED TO. SAFETY AND FALL PRECAUTION MEASURES IN PLACED. BED IN LOW AND LOCKED POSITION. CALL LIGHT PLACED WITHIN REACH.
--- NOTE | 2017-05-09 21:15 | NUR ---
MEDICATION DUE MEDICATIONS GIVEN SCHEDULED, TOLERATED WELL. WILL CONTINUE TO MONITOR.
[2017-05-10] VITALS: BP_SYST 133
--- NOTE | 2017-05-10 | NUR ---
PATIENT RESTING: Patient resting quietly. No acute distress noted. Vital signs within normal range.
--- NOTE | 2017-05-10 02:10 | NUR ---
ROUNDS PATIENT ASLEEP AT THIS TIME, VITALS STABLE, NO SIGNS OF ANY PAIN AND DISCOMFORT NOTED. WILL CONTINUE TO MONITOR.
[2017-05-10 04:00] VITALS: BP_SYST 129
--- NOTE | 2017-05-10 04:00 | NUR ---
PATIENT RESTING: Patient resting quietly. No acute distress noted. Vital signs within normal range.
[2017-05-10] MEDS: DIPHENHYDRAMINE INJ 50 MG/ML VIAL IVP PRN ×3 (06:21→23:24)
[2017-05-10] MEDS: INSULIN REGULAR, HUMAN 100 UNITS/ML, 10 ML VIAL (novoLIN R) SUBCUT PRN ×3 (06:25→18:27)
--- NOTE | 2017-05-10 06:48 | NUR ---
PAGE CALLED FOR DR. BAEZA. SPOKE TO ETHAN, DIALED [phone].
--- NOTE | 2017-05-10 06:55 | NUR ---
CLOSING NOTES PATIENT AWAKE, VITALS STABLE, ACCU CHECK DONE WITH BLOOD SUGAR OF 177 MG/DL. REGULAR INSULIN 2 UNITS SUBCUTANEOUS GIVEN PER SLIDING SCALE. ALL NEEDS ATTENDED TO. CALL LIGHT PLACED WITHIN REACH.
[2017-05-10] MEDS ORDERED: HYDROcodone/ACETAMIN 5-325 MG TAB (NORCO/ VICODIN) PO PRN (07:15)
[2017-05-10 07:50] LABS: BASOPHILS % (AUTO) 0.1 % (0.0-2.0); HEMOGLOBIN 12.4 g/dL (12.0-16.0); LYMPHOCYTES # (AUTO) 0.5 K/uL (1.0-5.5); MEAN CORPUSCULAR HGB CONC 33 % (32-36); MEAN CORPUSCULAR VOLUME 86 fL (79.0-98.0); MONOCYTES # (AUTO) 0.9 K/uL (0.0-1.0)
[2017-05-10 08:00] VITALS: BP_SYST 127
--- NOTE | 2017-05-10 08:00 | NUR ---
AM SHIFT NOTE: RECEIVED PT A/O X 4, C/O GENERAL BODY ITCHING WITH SKIN RASHES, IV AT RIGHT HAND, AMBULATED WELL, CCHO DIET. BED AT LOW POSITION, CALL LIGHT WITHIN REACH.
[2017-05-10 08:17] LABS: EOSINOPHILS % (AUTO) 0.3 % (0.0-4.0); HEMATOCRIT 37.3 % (36-48); LYMPHOCYTES % (AUTO) 4.6 % (20.5-51.5); MEAN CORPUSCULAR HEMOGLOBIN 29 pg (27-31); MONOCYTES % (AUTO) 8.1 % (1.7-9.3); NEUTROPHILS % (AUTO) 86.9 % (40.0-70.0); PLATELET COUNT (AUTO) 375 K/uL (130-430); RED BLOOD CELL COUNT(AUTO) 4.34 MIL/uL (4.2-6.2); RED CELL DISTRIBUTION WIDTH 12.5 % (9.0-15.0); WHITE BLOOD COUNT (AUTO) 11.4 K/uL (4.8-10.8)
[2017-05-10 08:32] LABS: CALCIUM 9.2 mg/dL (8.4-11.0); CREATININE 0.72 mg/dL (0.55-1.30); POTASSIUM 3.8 mmol/L (3.5-5.1)
[2017-05-10 08:45] LABS: ALBUMIN 2.8 g/dL (3.4-4.8); TOTAL BILIRUBIN 0.4 mg/dL (0.0-1.0)
[2017-05-10] MEDS: MAGNESIUM CHLORIDE 64 MG TABLET.DR PO SCH ×2 (09:00→21:10)
[2017-05-10] MEDS: glipiZIDE XL 5 MG TAB ( GLUCOTROL XL) PO SCH ×2 (09:13→21:00)
[2017-05-10] MEDS: PARoxetine HCL 20 MG TABLET PO SCH ×2 (09:13→21:10)
[2017-05-10] MEDS: LORATADINE 10 MG TABLET PO SCH (09:14)
[2017-05-10] MEDS: amLODIPine BESYLATE 10 MG TABLET PO SCH (09:14)
[2017-05-10] MEDS: methylPREDNISolone SOD SUCC 40 MG/ML VIAL IVP SCH ×2 (09:15→21:10)
[2017-05-10] MEDS: LOSARTAN POTASSIUM 50 MG TABLET (COZAAR) PO SCH (09:15)
[2017-05-10] MEDS: ONDANSETRON HCL 4 MG/2 ML VIAL IVP PRN (09:15)
[2017-05-10] MEDS: cloNIDine HCL 0.1 MG TABLET PO SCH ×3 (09:17→21:10)
--- NOTE | 2017-05-10 09:55 | NUR ---
ROUNDING: ROUTINE MEDS GIVEN PT TOLERATED WELL.
--- NOTE | 2017-05-10 10:45 | NUR ---
DC PLANNING: F/U with Seth # [phone], he confirmed received the docs. faxed yesterday. He is reviewing the case and will call me back with decision.
[2017-05-10 12:21] LABS: CRYPTOCOCCUS AG, SERUM NEGATIVE (NEGATIVE)
[2017-05-10 12:22] LABS: COCCIDIOIDES AB COMPLEMENT FIX Negative (NEGATIVE)
[2017-05-10 12:45] VITALS: BP_SYST 131
--- NOTE | 2017-05-10 15:31 | NUR ---
Nutrition F/U Admitting Diagnosis Abd pain, mild protein malnutrition Reviewed Pertinent Medical/Surgical Hx Medical Record Patient Primary RN Medical History Comment: DM type 2, HTN, depression per MD notes 05/09/17 notes: ABDOMINAL PAIN MOST LIKELY SECONDARY TO INTRA-ABDOMINAL PATHOLOGY AND LYMPHADENOPATHY POSSIBLE LYMPHOMA W / SKIN INVOLVEMENT, HYPOKALEMIA, HYPOMAGNESEMIA, MILD PROTEIN MALNUTRITION, DM-II, HTN, OBESITY, H/O CHOLECYSTECTOMY AND HYSTERECTOMY, ANXIETY + DEPRESSION, GENERALIZED LYMPHADENOPATHY / ? LYMPHOMA, GENERALIZED SKIN RASH / ? EXANTHEMATOUS DISEASE, RIGHT SIDED ABDOMINAL LIPOMA. Subjective Information Pt seen resting in bed at time of RD visit. Pt reported of good appetite and stated that she likes our food. Pt likes roast beef and baked potato served the other day. Pt reported of some difficulty in swallowing d/t swollen lymph nodes. Per MD notes, pt is for transfer to [facility] for lymph node Bx and skin Bx. Per EMR, abd is soft and non-distended w/ active bowel sounds. I/O: 370/0 +370ml, IV total intake: 20ml per 12 hrs. PO intake: 92% average of 3 meals. Pt is likely meeting optimal nutritional needs. Pt was not interested in nutrition education. Current Diet Order/Nutrition Support Regular, CCHO low carb-45 gm x10 days Patient/Significant Other Able To Verbalize Education Provided Not Indicated Pertinent Medications glipizide, zofran SSI, solu-Medrol Pertinent Labs BG 183 H, POC BG 177 H, WBC 11.4 H, ALP 122 H, Alb 2.8 L LDL 106 H (04/28/17), HDL 28 H (04/28/17), Triglycerides 220 H (04/28/17) Height (Feet) 5 feet Height (Inches) 3.00 inches Weight (Pounds) 213 pounds (admission) Weight (Calculated Kilograms) 96.701557 kilograms Patient Weight 96.615 kg Body Mass Index 37.73 kg/m2 Usual Weight 220 lbs %UBW 97 %IBW 187 [place]/Adjusted Body Weight IBW: 115 lb, 52 kg. Adj IBW (obesity): 140 lb, 64 kg Recent Weight Change Yes - 7 lb wt loss within past month d/t abd pain; 3% significant wt change Weight Status Obese Food Allergies Yes - Onions; reaction: vomiting/hives Last BM 05/10/17 x1 Usual Diet At Home Tries to monitor BG levels; eats more fish and tries to eat less red meat Skin Integrity Comment: Karel scale: 21 05/09/17; per nursing notes, +flushed skin color; anterior lateral L posterior R back: generalized rashes Current % PO Good; 92% average x3 meals Estimated Energy Expenditure (kcals/day) 9364-2137 kcal/day (BEE x 1-1.2 CBW for maintenance) Estimated Protein Required (g/day) 42-52 gm/day (0.8-1 gm/kg IBW for maintenance) Estimated Fluid Required (l/day) 1.6-2 L/day (1 ml/kcal/day for maintenance) Problem/Etiology/Signs/Symptoms Complicated GI function related to abd pain as evidenced by need for GI workups and pending colonoscopy. *no longer applicable Altered nutrition-related labs related to endocrine dysfunction as evidenced by elevated BG and POC BG lab values. *ongoing Expected Outcomes/Goals - Monitor pt appetite, and PO intakes w/ goal of pt meeting at least 80% of estimated nutritional needs, labs trending WNL, normal GI function, and skin integrity/wt maintenance Dietitian Recommendations * Recommend continuing regular, CCHO low carb-45 gm diet per MD Follow Up Moderate
[2017-05-10 16:37] VITALS: BP_SYST 126
--- NOTE | 2017-05-10 17:45 | NUR ---
ROUNDING: PT HAD DINNER WELL, ROUTINE MEDS GIVEN.
--- NOTE | 2017-05-10 19:20 | NUR ---
CLOSING NOTE: ENDORSED TO SUPERINTENDENT RADIO COMMUNICATIONS RN/NICOLASA FOR CONTINUE CARE.
--- NOTE | 2017-05-10 19:35 | NUR ---
INITIAL NOTE Pt awake and alert with family at bedside. Pt in no apparent distress. Denies pain. IV SL 22g to R hand. Pt ambulatory. Left call campos within reach and encouraged to use for any problems. Verbalized understanding.
[2017-05-10 20:00] VITALS: BP_SYST 139
--- NOTE | 2017-05-10 21:00 | NUR ---
ROUNDS/NPO VS stable. Notified pt of NPO status after midnight and surgery scheduled for 05/11. Consent signed. Administered routine meds and prn pain medication. Will page MD as pts BS 296 requiring 6 units insulin and routine glipizide however pt to be NPO.
[2017-05-10] MEDS: HYDROcodone/ACETAMIN 5-325 MG TAB (NORCO/ VICODIN) PO PRN (21:11)
--- NOTE | 2017-05-10 21:34 | NUR ---
paged paged for Dr Castillo, dialed . s/w Jorgito.
--- NOTE | 2017-05-10 22:11 | NUR ---
Consult Called Reason for consultation: LN and skin bx Consulting Physician: Piyush Durham MD Material Handler Phone number: [phone] Person who was notified: Estela Lantigua by Dr. Castillo
--- NOTE | 2017-05-10 22:14 | NUR ---
paged paged for Dr Castillo, dialed . s/w John.
--- NOTE | 2017-05-10 22:18 | NUR ---
Spoke to Dr. Castillo Spoke to Dr. Castillo to report pts NPO status d/t surgery on 05/11 and pt DM with NOC BS of 296 requiring coverage of 6 units regular insulin and routine glipizide. Per Dr. Castillo do not cover pt with insulin until after surgery and hold glypizide. Read back order. Will endorse to oncoming nurse.
--- NOTE | 2017-05-10 23:40 | NUR ---
ROUNDS Pt c/o generalized ithcing. Administered prn benadryl to pt per pts request. Will continue to monitor. Call campos within reach.
[2017-05-11 00:25] VITALS: BP_SYST 125
[2017-05-11] MEDS: HYDROcodone/ACETAMIN 5-325 MG TAB (NORCO/ VICODIN) PO PRN ×2 (00:29→22:34)
--- NOTE | 2017-05-11 01:20 | NUR ---
ROUNDS Pt sleeping soundly. Breathing easy and unlabored in no distress. Call campos within reach. Will continue to monitor.
--- NOTE | 2017-05-11 03:35 | NUR ---
ROUNDS Pt awake sitting up in bed in no distress. Reminded pt of NPO status and surgery. Verbalized understanding. Call campos within reach.
--- NOTE | 2017-05-11 05:35 | NUR ---
ROUNDS Pt sleeping soundly in no apparent distress. Breathing easy and unlabored. Call campos within reach. will continue to monitor.
[2017-05-11 05:48] VITALS: BP_SYST 128
--- NOTE | 2017-05-11 06:37 | NUR ---
CLOSING NOTE Blood sugar check 299. Per Dr. Castillo hold insulin coverage until after npo status/surgery. Pt awake in no distress. Reminded pt of npo status. Provided emotional support as pt expressed feeling nervous due to pending surgery. will continue to monitor and endorse care to dayshift.
[2017-05-11 08:00] VITALS: BP_SYST 137
--- NOTE | 2017-05-11 08:00 | NUR ---
AM SHIFT NOTE: RECEIVED PT A/O X4, NPO FOR SURGERY THIS AFTERNOON, IV AT LEFT HAND, VOIDING , AMBULATED WELL, BED AT LOW POSITION, CALL LIGHT WITHIN REACH.
[2017-05-11] MEDS: PARoxetine HCL 20 MG TABLET PO SCH ×2 (09:30→22:17)
[2017-05-11] MEDS: glipiZIDE XL 5 MG TAB ( GLUCOTROL XL) PO SCH ×2 (09:30→22:17)
--- NOTE | 2017-05-11 09:30 | NUR ---
MD ROUNDING: SEEN BY , ORDERED IV FLUID AND URINE HCG, ORDERS CARRIED OUT. CONTINUE FOR MONITOR.
[2017-05-11] MEDS: amLODIPine BESYLATE 10 MG TABLET PO SCH (09:31)
[2017-05-11] MEDS: LOSARTAN POTASSIUM 50 MG TABLET (COZAAR) PO SCH (09:32)
[2017-05-11] MEDS: LORATADINE 10 MG TABLET PO SCH (09:32)
[2017-05-11] MEDS: methylPREDNISolone SOD SUCC 40 MG/ML VIAL IVP SCH ×2 (09:33→22:18)
[2017-05-11] MEDS: cloNIDine HCL 0.1 MG TABLET PO SCH ×3 (09:33→22:17)
--- NOTE | 2017-05-11 09:45 | NUR ---
SENT LABS: SENT URINE SAMPLE AND MRSA NAIRAS SCREEN.
[2017-05-11] MEDS: MAGNESIUM CHLORIDE 64 MG TABLET.DR PO SCH ×2 (09:46→22:19)
[2017-05-11] MEDS: LR 1,000 ML IV SCH ×2 (10:54→22:18)
[2017-05-11 11:44] LABS: BILIRUBIN,URINE NEGATIVE (NEGATIVE); BLOOD, URINE NEGATIVE (NEGATIVE); CLARITY/URINE CLEAR (CLEAR); COLOR,URINE YELLOW (YELLOW); GLUCOSE,URINE 1+ (NEGATIVE); KETONES,URINE NEGATIVE (NEGATIVE); LEUKOCYTE ESTERASE ,URINE NEGATIVE (NEGATIVE); NITRITE, URINE NEGATIVE (NEGATIVE); PROTEIN URINE TRACE (NEGATIVE)
[2017-05-11 11:49] LABS: BACTERIA,URINE RARE /HPF (None Seen); MUCUS,URINE 1+ /LPF (None Seen); RBC,URINE 0-3 /HPF (0-3); WBC,URINE 0-3 /HPF (0-3)
[2017-05-11 13:00] VITALS: BP_SYST 141
--- NOTE | 2017-05-11 13:10 | NUR ---
DC Planning: Per message from Seth at [employer], he arranged LN bx for the pt. on 05/15/17 at 1430. CM called him back to notified him that now our PMD was able to find Dr. Durham who agreed to do the bx yesterday evening. The pt. has OR reservation for the bx today at 1530. Seth requested pt to discharge home today and to f/u with LN bx as arranged. I again, informed him that dr. Castillo will not discharge the pt. home dt new developed rashes and swelling lymp nodes, with diffuse lymphadenopathy/ possible lymphoma. And per wood and wood products factory worker the pt. needs LN bx to rule out any cutaneous involvement by lymphoma or other diseases. I requested Seth for MD to MD report for pt's necessity to remain as inpt and to have bx done at [facility]. Seth provided Dr. Toledo cell# [phone] for MD to report. Addendum: 05/11/17 at 1527 by Ashley Garcia RN >> Arranged for dr. Castillo to speak with dr. Toledo via his cell phone. Dr. Castillo concluded that "Dr. Toledo agreed with the necessity for LN bx at [facility] and not to dc to home for out pt. bx. And Dr. Toledo will update his case picker to f/u with the bx result. Addendum: 05/11/17 at 1529 by Ashley Garcia RN >> Notified Seth as per to 's conversation above and MAKSIM will send bx report as soon as it becomes available.
--- NOTE | 2017-05-11 14:10 | NUR ---
ROUNDING: PT WAS RESTING IN BED, NO C/O PAIN AT THIS TIME.
[2017-05-11] MEDS ORDERED: fentaNYL CITRATE 250 MCG/5 ML AMP IV ONE (15:30)
[2017-05-11] MEDS ORDERED: DEXAMETHASONE SOD PHOSPHATE 4 MG/ML VIAL IVP ONE (15:30)
[2017-05-11] MEDS ORDERED: ONDANSETRON HCL 4 MG/2 ML VIAL IVP ONE (15:30)
[2017-05-11] MEDS ORDERED: NS IRRIG SOLN 1000 ML IR ONE (15:30)
[2017-05-11] MEDS ORDERED: SUCCINYLCHOLINE CHLORIDE 20 MG/ML(QUELICIN) IVP ONE (15:30)
[2017-05-11] MEDS ORDERED: MIVACURIUM CHLORIDE 20 MG/10 ML VIAL (MIVACRON) INJ ONE (15:30)
[2017-05-11] MEDS ORDERED: PROPOFOL 200MG/ 20ML VIAL (DIPRIVAN) IV ONE (15:30)
[2017-05-11] MEDS ORDERED: BUPIVACAINE /EPINEPHRINE/PF 0.25% 30 ML VIAL INJ ONE (15:30)
[2017-05-11] MEDS ORDERED: CEFAZOLIN 2 GM IVPB PREMIX 50 ML IV ONE (15:30)
[2017-05-11] MEDS ORDERED: SEVOFLURANE 15 MIN GAS INH ONE (15:30)
[2017-05-11] MEDS ORDERED: KETOROLAC TROMETHAMINE 30 MG VIAL IVP ONE (15:30)
[2017-05-11] MEDS ORDERED: ROCURONIUM BROMIDE 10 MG/ML (ZEMURON) IV ONE (15:30)
--- NOTE | 2017-05-11 15:45 | NUR ---
Pt was sent to OR: Pt was sent to OR, a/o x 4, vital signs stable.
[2017-05-11 15:48] LABS: HCG,QUAL RESULT NEGATIVE (NEGATIVE)
[2017-05-11] MEDS ORDERED: LR 1,000 ML IV SCH (16:29)
[2017-05-11] MEDS ORDERED: HYDROmorphone 2 MG/ML VIAL IVP PRN ×2 (16:30)
[2017-05-11] MEDS ORDERED: MEPERIDINE HCL/PF 25 MG/ML DISP.SYRIN IVP PRN (16:30)
[2017-05-11] MEDS ORDERED: HYDROmorphone 1 MG INJ. 1 MG/ML AMPUL IVP PRN (16:30)
[2017-05-11] MEDS ORDERED: HYDROmorphone 2 MG/ML VIAL ONE (18:00)
--- NOTE | 2017-05-11 18:40 | NUR ---
Pt came back from OR: Pt came back from OR, VITAL SIGNS STABLE AT THIS TIME, ORDER CARRIED OUT, CONTINUE TO MONITOR.
--- NOTE | 2017-05-11 19:15 | NUR ---
CLOSING NOTE: ENDORSED TO BULK PLANT MANAGER RN/ MK FOR CONTINUE CARE.
[2017-05-11 20:26] VITALS: BP_SYST 154
--- NOTE | 2017-05-11 20:35 | NUR ---
Patient awake alert scattered rash noted to lower & upper body assist patient for position change respirations regular also unlabored .
[2017-05-11 21:02] VITALS: BP_SYST 154
--- NOTE | 2017-05-11 22:05 | NUR ---
BENADRYL 25 MG IVP ADMINISTER FOR ITCHING & HELPFUL .
[2017-05-11] MEDS: INSULIN REGULAR, HUMAN 100 UNITS/ML, 10 ML VIAL (novoLIN R) SUBCUT PRN (22:16)
[2017-05-11] MEDS: ONDANSETRON HCL 4 MG/2 ML VIAL IVP PRN (22:17)
[2017-05-11] MEDS: DIPHENHYDRAMINE INJ 50 MG/ML VIAL IVP PRN (22:18)
--- NOTE | 2017-05-12 | NUR ---
INCISION TO LEFT LOWER NECK AREA INTACT no bleeding noted skin dry warm call campos with PT .
[2017-05-12 00:50] VITALS: BP_SYST 125
--- NOTE | 2017-05-12 03:49 | NUR ---
NORCO TABLETS PO GIVEN FOR GENERAL PAIN & HELPFUL .
--- NOTE | 2017-05-12 03:50 | NUR ---
Hourly Rounding patient awake HOB elevated skin dry warm call campos with PT .
[2017-05-12] MEDS: HYDROcodone/ACETAMIN 5-325 MG TAB (NORCO/ VICODIN) PO PRN ×2 (04:02→08:29)
[2017-05-12] MEDS: DIPHENHYDRAMINE INJ 50 MG/ML VIAL IVP PRN ×3 (04:02→22:13)
--- NOTE | 2017-05-12 04:18 | NUR ---
NORCO TWO TABLETS GIVEN PO FOR GENERAL PAIN as ordered .
[2017-05-12 04:52] VITALS: BP_SYST 133
[2017-05-12] MEDS: INSULIN REGULAR, HUMAN 100 UNITS/ML, 10 ML VIAL (novoLIN R) SUBCUT PRN ×4 (06:29→21:06)
[2017-05-12 07:50] VITALS: BP_SYST 160
--- NOTE | 2017-05-12 07:50 | NUR ---
RN OPENING NOTE PT POST OP DAY 1 LYMPHECTOMY, SHE IS SITTING UP IN BED, A/O X 4, BREATHING CLEAR AND UNLABORED, Sx DRESSING DRY AND INTACT. PT IS COMPLAINING OF PAIN 7/10 AND INCISION SITE WELL ITCHING DUE TO A GENERAL RASH WHICH COVERS HER TORSO AND EXTREMITIES BILATERALLY. THE RASH APPEARS REACTIVE TO SUNLIGHT IT IS LESS EVIDENT IN AREAS NORMALLY COVERED BY CLOTHING. THE PT STATED IT IS ACUTE. THE RASH IS CHARACTERISTIC TO AN ALLERGIC REACTION AND IS NOT CHARACTERISTIC OF SCABIES. PT EDUCATED ON UNIT SAFETY AND DEMONSTRATED USE OF THE CALL LIGHT. I WILL ADMINISTER BENADRYL AND PAIN MEDS ASA[
[2017-05-12] MEDS: amLODIPine BESYLATE 10 MG TABLET PO SCH (08:26)
[2017-05-12] MEDS: cloNIDine HCL 0.1 MG TABLET PO SCH ×3 (08:26→20:56)
[2017-05-12] MEDS: PARoxetine HCL 20 MG TABLET PO SCH ×2 (08:26→20:56)
[2017-05-12] MEDS: LOSARTAN POTASSIUM 50 MG TABLET (COZAAR) PO SCH (08:27)
[2017-05-12] MEDS: glipiZIDE XL 5 MG TAB ( GLUCOTROL XL) PO SCH ×2 (08:27→20:56)
[2017-05-12] MEDS: LORATADINE 10 MG TABLET PO SCH (08:27)
[2017-05-12] MEDS: MAGNESIUM CHLORIDE 64 MG TABLET.DR PO SCH ×2 (08:29→20:56)
[2017-05-12] MEDS: LR 1,000 ML IV SCH ×2 (08:38→16:24)
[2017-05-12] MEDS: methylPREDNISolone SOD SUCC 40 MG/ML VIAL IVP SCH ×2 (10:35→20:56)
--- NOTE | 2017-05-12 10:36 | NUR ---
KRISTINA MUHAMMAD PT IS SITTING UP IN BED AND REPORTED HER ITCHING IS BEING MANAGED BUT SHE IS STILL IN PAIN EVEN AFTER HER NORCO. I TOLD HER I WILL FOLLOW UP WITH HER DOCTOR REGARDING PAIN MANAGEMENT OPTIONS.
[2017-05-12 12:00] VITALS: BP_SYST 138
[2017-05-12] MEDS ORDERED: MORPHINE 4 MG/ML INJ. SYRINGE ONE (13:27)
--- NOTE | 2017-05-12 15:06 | NUR ---
RN ROUNDS PT IS RESTING IN BED. SHE IS DIAPHORETIC BUT AFEBRILE, REPORTING ONLY MILD PAIN AT THIS SIDE. PT OFFERED ICE PACKS FOR COMFORT.
[2017-05-12 15:36] VITALS: BP_SYST 135
--- NOTE | 2017-05-12 17:00 | NUR ---
RN ROUNDS PT STATED SHE IS FEELING BETTER AND SHE IS NO LONGER SWEATING. SHE STILL REPORTS A FEELING OF "HOT SKIN" EVEN THOUGH IT IS NOT HOT TO THE TOUCH AND HER RASH CONTINUES TO DIMINISH. I OFFERED ADDITIONAL ICE PACKS FOR COMFORT.
--- NOTE | 2017-05-12 19:00 | NUR ---
RN CLOSING NOTE PT IS SITTING UP IN BED TALKING WITH A FRIEND WHO IS AT BEDSIDE. PT REPORTS NO DISCOMFORT AND STATED ALL OF HER NEEDS HAD BEEN MET DURING THE SHIFT. REPORT ENDORSED TO KRISTINA DELEON AT BEDSIDE.
--- NOTE | 2017-05-12 19:15 | NUR ---
Initial Notes Received patient in bed, awake alert oriented with friend at bedside. No s/s of any distress noted. IV noted to L f/a g22 no infiltrate and with good blood return. All extremities are strong, ambulatory with assist. Discussed plan of care with patient and verbalized understanding. Call light in reach, will cont to monitor.
[2017-05-12] MEDS: MORPHINE 4 MG/ML INJ. SYRINGE IVP PRN (20:58)
[2017-05-12 21:15] VITALS: BP_SYST 135
--- NOTE | 2017-05-12 21:15 | NUR ---
Rounds Patient is resting in bed with lady friend at bedside. No s/s of any distress noted. Call light in reach, will cont to monitor.
[2017-05-13 00:20] VITALS: BP_SYST 136
--- NOTE | 2017-05-13 00:34 | NUR ---
Received report from Fabien ACEVEDO, taking over patient for continuity of care. Patient sleeping at this time. No s/s of pain noted.
[2017-05-13] MEDS: LR 1,000 ML IV SCH ×3 (01:12→23:58)
--- NOTE | 2017-05-13 02:12 | NUR ---
Notes Patient resting in bed, denies pain at this time. No SOB noted. IV site patent, flushes well. Call light within reach. Will continue to monitor.
[2017-05-13] MEDS: MORPHINE 4 MG/ML INJ. SYRINGE IVP PRN ×2 (03:09→20:37)
[2017-05-13 03:34] VITALS: BP_SYST 136
--- NOTE | 2017-05-13 04:00 | NUR ---
Notes Patient sleeping at this time. No SOB noted. No s/s of pain noted. Afebrile. IV site patent, flushes well. Patient repositioned in bed. Call light within reach. Will continue to monitor.
[2017-05-13] MEDS: DIPHENHYDRAMINE INJ 50 MG/ML VIAL IVP PRN ×2 (06:06→17:05)
[2017-05-13] MEDS: INSULIN REGULAR, HUMAN 100 UNITS/ML, 10 ML VIAL (novoLIN R) SUBCUT PRN ×3 (06:11→20:35)
--- NOTE | 2017-05-13 06:23 | NUR ---
Closing Notes Patient resting in bed, recently medicated with PRN Benadryl as requested. Blood sugar checked and covered per sliding scale. Call light within reach. Will continue to monitor.
[2017-05-13 08:00] VITALS: BP_SYST 143
[2017-05-13] MEDS: LORATADINE 10 MG TABLET PO SCH (10:45)
[2017-05-13] MEDS: cloNIDine HCL 0.1 MG TABLET PO SCH ×3 (10:47→20:26)
[2017-05-13] MEDS: amLODIPine BESYLATE 10 MG TABLET PO SCH (10:48)
[2017-05-13] MEDS: PARoxetine HCL 20 MG TABLET PO SCH ×2 (10:48→20:25)
[2017-05-13] MEDS: LOSARTAN POTASSIUM 50 MG TABLET (COZAAR) PO SCH (10:50)
[2017-05-13] MEDS: methylPREDNISolone SOD SUCC 40 MG/ML VIAL IVP SCH ×2 (10:51→20:26)
[2017-05-13] MEDS: MAGNESIUM CHLORIDE 64 MG TABLET.DR PO SCH ×2 (12:45→20:27)
[2017-05-13] MEDS: glipiZIDE XL 5 MG TAB ( GLUCOTROL XL) PO SCH ×2 (12:46→20:25)
[2017-05-13] MEDS ORDERED: MILK OF MAGNESIA 30 ML UDC PO PRN ×2 (14:00)
[2017-05-13 16:00] VITALS: BP_SYST 146
[2017-05-13 19:08] VITALS: BP_SYST 151
--- NOTE | 2017-05-13 19:08 | NUR ---
Initial Notes Received patient in bed watching tv. No s/s of any distress noted. IV noted to L hand g 24, no infiltrate and with good blood return. All extremities are strong, ambulatory. Discussed plan of care and verbalized understanding. Call light in reach, will cont to monitor.
--- NOTE | 2017-05-13 19:52 | NUR ---
Pt. alert,cooperative,up ad adam, call light reach, IVF infusing without diff..adm. meds as ordered.
--- NOTE | 2017-05-13 21:08 | NUR ---
Rounds Patient is talking with family at bedside. No s/s of pain noted. Call light in reach, will cont to monitor.
--- NOTE | 2017-05-13 23:08 | NUR ---
Rounds Patient is resting in bed, watching tv at this time. No s/s of any distress noted. Call light in reach, will cont to monitor.
[2017-05-13 23:33] VITALS: BP_SYST 133
[2017-05-14] MEDS: DIPHENHYDRAMINE INJ 50 MG/ML VIAL IVP PRN ×2 (00:35→11:51)
[2017-05-14] MEDS: MORPHINE 4 MG/ML INJ. SYRINGE IVP PRN ×2 (00:38→21:56)
--- NOTE | 2017-05-14 01:08 | NUR ---
Reinsert new IV Restart new IV site g22 to R hand. Tolerated well. Call light in reach, will cont to monitor.
--- NOTE | 2017-05-14 03:08 | NUR ---
Rounds Assisted to b/r and safely back to bed. No s/s of any distress noted. Call light in reach, will cont to monitor.
[2017-05-14 04:12] VITALS: BP_SYST 131
--- NOTE | 2017-05-14 05:08 | NUR ---
Rounds Patient is resting comfortably in bed at this time. No s/s of any distress noted. Call light in reach, will cont to monitor.
[2017-05-14] MEDS: INSULIN REGULAR, HUMAN 100 UNITS/ML, 10 ML VIAL (novoLIN R) SUBCUT PRN ×4 (05:59→21:51)
--- NOTE | 2017-05-14 06:49 | NUR ---
Final Notes Patient is resting comfortably at this time. No s/s of any distress noted. Still c/o itch and pain during noc shift. Morphine and Benadryl administered as ordered. All needs met and anticipated by nurses. Call light in reach, will endorse care.
[2017-05-14 07:29] LABS: CREATININE 0.53 mg/dL (0.55-1.30); POTASSIUM 3.6 mmol/L (3.5-5.1)
[2017-05-14 07:48] LABS: EOSINOPHILS # (AUTO) 0.1 K/uL (0.0-0.4); EOSINOPHILS % (AUTO) 0.8 % (0.0-4.0); HEMATOCRIT 38.3 % (36-48); HEMOGLOBIN 12.8 g/dL (12.0-16.0); LYMPHOCYTES # (AUTO) 1.1 K/uL (1.0-5.5); LYMPHOCYTES % (AUTO) 10.5 % (20.5-51.5); MEAN CORPUSCULAR HEMOGLOBIN 29 pg (27-31); MEAN CORPUSCULAR HGB CONC 34 % (32-36); MEAN CORPUSCULAR VOLUME 85 fL (79.0-98.0); MONOCYTES # (AUTO) 0.6 K/uL (0.0-1.0); MONOCYTES % (AUTO) 5.3 % (1.7-9.3); NEUTROPHILS # (AUTO) 9.1 K/uL (1.8-7.7); NEUTROPHILS % (AUTO) 83.4 % (40.0-70.0); PLATELET COUNT (AUTO) 271 K/uL (130-430); RED CELL DISTRIBUTION WIDTH 12.3 % (9.0-15.0); WHITE BLOOD COUNT (AUTO) 10.9 K/uL (4.8-10.8)
[2017-05-14 07:59] VITALS: BP_SYST 150
--- NOTE | 2017-05-14 08:00 | NUR ---
NOTE PT SITTING UP IN BED EATING HER BREAKFAST. NO SOB/RESP DISTRESS NOTED. PT HAS RASH ALL OVER BODY AND HAS BEEN TRYING NOT TO ITCH ALL MORNING. PT HAS VISTARIL PO Q4' AND BENADRYL IVP GIVEN REQUESTED AND SCHEDULED. NO NEEDS NOTED. CALL LIGHT WITHIN REACH.
[2017-05-14] MEDS: MAGNESIUM CHLORIDE 64 MG TABLET.DR PO SCH ×2 (09:06→21:42)
[2017-05-14] MEDS: methylPREDNISolone SOD SUCC 40 MG/ML VIAL IVP SCH ×2 (09:06→21:42)
[2017-05-14] MEDS: PARoxetine HCL 20 MG TABLET PO SCH ×2 (09:06→21:40)
[2017-05-14] MEDS: LORATADINE 10 MG TABLET PO SCH (09:07)
[2017-05-14] MEDS: cloNIDine HCL 0.1 MG TABLET PO SCH ×3 (09:07→21:42)
[2017-05-14] MEDS: LOSARTAN POTASSIUM 50 MG TABLET (COZAAR) PO SCH (09:07)
[2017-05-14] MEDS: amLODIPine BESYLATE 10 MG TABLET PO SCH (09:08)
[2017-05-14] MEDS: LR 1,000 ML IV SCH ×2 (09:17→18:35)
[2017-05-14] MEDS: glipiZIDE XL 5 MG TAB ( GLUCOTROL XL) PO SCH ×2 (09:17→21:39)
[2017-05-14] MEDS: HYDROcodone/ACETAMIN 5-325 MG TAB (NORCO/ VICODIN) PO PRN (09:23)
[2017-05-14 11:02] VITALS: BP_SYST 136
[2017-05-14 11:28] LABS: RETICULOCYTE COUNT 4.2 % (0.5-1.5)
--- NOTE | 2017-05-14 12:00 | NUR ---
NOTE PT SEEN BY DR BAEZA AT THIS TIME. PT WAS HAVING SOME ISSUES WITH HAVING A BOWEL MOVEMENT. MEDICATIONS WILL BE ORDERED BY MD AT THIS TIME. PT AMBULATES TO RESTROOM WITH IV POLE WITH STEADY GAIT ALL SHIFT. NO NEEDS NOTED. CALL LIGHT WITHIN REACH. LEFT NECK INCISION SITE DRESSING HAS BEEN CDI ALL SHIFT.
[2017-05-14] MEDS ORDERED: MINERAL OIL 133 ML ENEMA RC ONE (12:45)
[2017-05-14] MEDS ORDERED: NA PHOS,M-B/NA PHOS,DI-BA 118 ML (FLEET ENEMA) RC ONE (12:45)
[2017-05-14 16:00] VITALS: BP_SYST 130
--- NOTE | 2017-05-14 16:00 | NUR ---
NOTE PT ABLE TO HAVE BOWEL MOVEMENT, REFUSED THE FLEETS ENEMA ORDERED. PT NOW RESTING IN BED. DENIES ANY NEEDS AT THIS TIME. CALL LIGHT WITHIN REACH.
--- NOTE | 2017-05-14 18:30 | NUR ---
NOTE PT RESTING IN BED WATCHING TELEVISION. NO NEEDS NOTED. CALL LIGHT WITHIN REACH. IVF'S INFUSING WELL THROUGH RIGHT HAND IV SITE. PT CONTINUES TO AMBULATE IN THE ROOM WITH STEADY GAIT.
--- NOTE | 2017-05-14 19:35 | NUR ---
INITIAL NOTE Report received from night stocker. Pt received in bed awake and alert in no distress. IV 22g to R hand running LR at 100mls/hr. Awaiting results of biopsy. Call campos at bedside encouraged pt to utilize as needed. Verbalized understanding.
[2017-05-14 20:00] VITALS: BP_SYST 143
--- NOTE | 2017-05-14 21:40 | NUR ---
ROUNDS Pt awake and alert in no distress. VS stable. Blood sugar 172 covered with insulin. Administered morphine per pts request for pain. Call campos within reach will continue to monitor.
--- NOTE | 2017-05-14 22:10 | NUR ---
ROUNDS Pt resting comfortably. Pain medication effective. Family at bedside. Call campos within reach. Will continue to monitor.
[2017-05-14 23:35] VITALS: BP_SYST 137
--- NOTE | 2017-05-15 00:15 | NUR ---
ROUNDS Pt awake and alert requesting benadryl IV for itching. Pt with visible hives throughout body. No respiratory distress noted. Bendadryl 25mg slow IVP administered per md orders. Call campos within reach. Will continue to monitor.
[2017-05-15] MEDS: DIPHENHYDRAMINE INJ 50 MG/ML VIAL IVP PRN ×4 (00:24→22:56)
--- NOTE | 2017-05-15 01:58 | NUR ---
ROUNDS Pt up oob to bathroom requesting to disconnect IV while she changes shirt. Pt in no distress. Administered routine vistaril. Will continue to monitor.
[2017-05-15] MEDS: MORPHINE 4 MG/ML INJ. SYRINGE IVP PRN ×3 (03:44→21:57)
--- NOTE | 2017-05-15 03:45 | NUR ---
ROUNDS Pt requesting pain medication for neck pain 04/05. Morphine slow IVP administered per md orders. Will continue to monitor.
[2017-05-15 04:05] VITALS: BP_SYST 142
[2017-05-15] MEDS: LR 1,000 ML IV SCH ×2 (05:14→16:44)
--- NOTE | 2017-05-15 05:18 | NUR ---
ROUNDS Routine vistaril administered and hung new IV fluids bag. Pt resting comfortably.
[2017-05-15] MEDS: INSULIN REGULAR, HUMAN 100 UNITS/ML, 10 ML VIAL (novoLIN R) SUBCUT PRN ×4 (06:19→22:10)
--- NOTE | 2017-05-15 06:45 | NUR ---
CLOSING NOTE Pts blood sugar 223 covered with 4 units insulin per md orders. Pt resting comfortably in no distress. Will endorse care to dayshift.
[2017-05-15 07:41] LABS: EOSINOPHILS % (AUTO) 0.2 % (0.0-4.0); HEMATOCRIT 34.2 % (36-48); HEMOGLOBIN 11.5 g/dL (12.0-16.0); LYMPHOCYTES # (AUTO) 1.4 K/uL (1.0-5.5); LYMPHOCYTES % (AUTO) 14.9 % (20.5-51.5); MEAN CORPUSCULAR HEMOGLOBIN 29 pg (27-31); MEAN CORPUSCULAR HGB CONC 34 % (32-36); MEAN CORPUSCULAR VOLUME 86 fL (79.0-98.0); MONOCYTES # (AUTO) 0.5 K/uL (0.0-1.0); MONOCYTES % (AUTO) 5.3 % (1.7-9.3); NEUTROPHILS # (AUTO) 7.6 K/uL (1.8-7.7); NEUTROPHILS % (AUTO) 79.6 % (40.0-70.0); PLATELET COUNT (AUTO) 248 K/uL (130-430); RED CELL DISTRIBUTION WIDTH 12.3 % (9.0-15.0); WHITE BLOOD COUNT (AUTO) 9.5 K/uL (4.8-10.8)
[2017-05-15 07:56] LABS: CALCIUM 8.4 mg/dL (8.4-11.0); CREATININE 0.56 mg/dL (0.55-1.30); POTASSIUM 3.9 mmol/L (3.5-5.1)
[2017-05-15 08:20] VITALS: BP_SYST 144
[2017-05-15] MEDS: methylPREDNISolone SOD SUCC 40 MG/ML VIAL IVP SCH ×2 (10:17→21:57)
[2017-05-15] MEDS: MAGNESIUM CHLORIDE 64 MG TABLET.DR PO SCH ×2 (10:18→22:56)
[2017-05-15] MEDS: LORATADINE 10 MG TABLET PO SCH (10:20)
[2017-05-15] MEDS: LOSARTAN POTASSIUM 50 MG TABLET (COZAAR) PO SCH (10:21)
[2017-05-15] MEDS: cloNIDine HCL 0.1 MG TABLET PO SCH ×3 (10:21→21:58)
[2017-05-15] MEDS: PARoxetine HCL 20 MG TABLET PO SCH ×2 (10:22→21:58)
[2017-05-15] MEDS: glipiZIDE XL 5 MG TAB ( GLUCOTROL XL) PO SCH ×2 (10:22→21:58)
[2017-05-15] MEDS: amLODIPine BESYLATE 10 MG TABLET PO SCH (10:23)
--- NOTE | 2017-05-15 10:52 | NUR ---
1000 NOTE PATIENT ALERT AND ORIENTED X 4. PATIENT HAS NO NOTABLE SIGNS OF DISTRESS AT THIS TIME. PATIENT IS CALM, QUIET, AND COOPERATIVE. NO COMPLAINTS OF PAIN AT THIS TIME. ITCHING IS BOTHERSOME. PATIENTS BED IN LOWEST POSITION, CALL LIGHT WITHIN REACH, AND SIDE RAILS ARE UP FOR SAFETY MEASURES. PATIENTS IV RUNNING PER MD ORDERS. PATIENT ABLE TO AMBULATE TO REST ROOM NECESSARY. ENCOURAGED TO CALL IF NEEDS ARISE. PATIENT PENDING BIOPSY RESULTS. WILL FOLLOW UP NECESSARY WITH DR. BAEZA. WILL CONTINUE TO MONITOR PATIENT FOR CHANGES IN STATUS.
[2017-05-15 12:14] VITALS: BP_SYST 132
--- NOTE | 2017-05-15 16:25 | NUR ---
DC Planning: Per dr Castillo " he plans to discharge pt home but pending Pathology result'. Arranging dr. Castillo to speak with Queenie/Pathology dept.Dr Castillo said the result will be ready tomorrow.
[2017-05-15 16:32] VITALS: BP_SYST 138
[2017-05-15 20:00] VITALS: BP_SYST 117
--- NOTE | 2017-05-15 20:50 | NUR ---
OPENING NOTE PATIENT ALERT AND ORIENTED X 4. PATIENT HAS NO NOTABLE SIGNS OF DISTRESS AT THIS TIME. PATIENT IS CALM, QUIET, AND COOPERATIVE. NO COMPLAINTS OF PAIN AT THIS TIME. PATIENT HAS DIFFUSE RASH ALL OVER BODY. WOULD LIKE MEDICATIONS WHEN AVAILABLE. PATIENTS BED IN LOWEST POSITION, CALL LIGHT WITHIN REACH, AND SIDE RAILS ARE UP FOR SAFETY MEASURES. PATIENTS IV RUNNING PER MD ORDERS. PATIENT ABLE TO AMBULATE TO REST ROOM NECESSARY. ENCOURAGED TO CALL IF NEEDS ARISE. PATIENT PENDING BIOPSY RESULTS. WILL FOLLOW UP NECESSARY WITH DR. BAEZA. WILL CONTINUE TO MONITOR PATIENT FOR CHANGES IN STATUS.
--- NOTE | 2017-05-15 20:53 | NUR ---
CLOSING NOTE AWAITING SHIFT REPORT TO ONCOMING NURSE. PATIENT ALERT AND ORIENTED X 4. PATIENT HAS NO NOTABLE SIGNS OF DISTRESS AT THIS TIME. PATIENT IS CALM, QUIET, AND COOPERATIVE. NO COMPLAINTS OF PAIN AT THIS TIME. PATIENT HAS DIFFUSE RASH ALL OVER BODY. WOULD LIKE MEDICATIONS WHEN AVAILABLE. PATIENTS BED IN LOWEST POSITION, CALL LIGHT WITHIN REACH, AND SIDE RAILS ARE UP FOR SAFETY MEASURES. PATIENTS IV RUNNING PER MD ORDERS. PATIENT ABLE TO AMBULATE TO REST ROOM NECESSARY. ENCOURAGED TO CALL IF NEEDS ARISE. PATIENT PENDING BIOPSY RESULTS. WHEN DISCUSSING PLAN OF CARE WITH DR. BAEZA, PENDING RESULTS FOR TOMORROW. 05/16/17. TENTATIVELY, PATIENT AWARE. WILL CONTINUE TO MONITOR PATIENT FOR CHANGES IN STATUS. ALL NEEDS ARE MET AT THIS TIME.
[2017-05-16] VITALS (7 sets, daily range): BP systolic 119–151
--- NOTE | 2017-05-16 00:55 | NUR ---
Rounding Received pt from Marlena Brumfield RN. Pt sleeping soundly, no s/s distress noted. Call light within reach. To monitor.
--- NOTE | 2017-05-16 01:29 | NUR ---
1918 Report received from KRISTINA Turner, for continuity of patient care. Patient awake with visitors at bedside, in no acute distress with call light in reach. 1999 Patient requested IV dressing changed, as it is "messy". IV dressing changed and secured. 2199 Patient c/o 7/10 pain in abdomen and medicated with Morphine as ordered on emar. 2229 Pain level now 3/10. Patient awake up and about in room in no acute distress. 2300 Patient medicated with benadryl for itching. 2330 Patient resting more comfortably now with call light in reach. 0025 Report given to KRISTINA Puentes, for continuity of patient care. No further c/o and patient resting quietly in no acute distress with call light in reach.
--- NOTE | 2017-05-16 03:40 | NUR ---
Pain med Pt awake. VSS. Pt c/o of 710 pain on R. neck. Medicated with Morphine 4mg IVP as needed and Benadryl 25mg IVP for itching. L. neck dressing intact. IV fluids infusing on R. hand 22G clear and patent. Call light within reach. To monitor.
[2017-05-16] MEDS: DIPHENHYDRAMINE INJ 50 MG/ML VIAL IVP PRN ×5 (03:41→21:47)
[2017-05-16] MEDS: LR 1,000 ML IV SCH ×3 (03:42→14:59)
[2017-05-16] MEDS: MORPHINE 4 MG/ML INJ. SYRINGE IVP PRN ×3 (03:43→21:49)
[2017-05-16] MEDS: INSULIN REGULAR, HUMAN 100 UNITS/ML, 10 ML VIAL (novoLIN R) SUBCUT PRN ×4 (06:39→22:18)
--- NOTE | 2017-05-16 06:55 | NUR ---
Closing notes Pt awake, VSS, no s/s distress noted. Glucose checked 236 and 4 units Regular insulin given SQ per protocol. L. neck dressing intact. To endorse to am nurse.
--- NOTE | 2017-05-16 08:14 | NUR ---
OPENING NOTE RECEIVED PT AAOX4 IN NO ACUTE DISTRESS. C/O GENERALIZED ITCHING FROM RASH. PT MEDICATED WITH MORPHINE AND BENADRYL ORDERED. IVF INFUSING WELL INTO RT HAND, NO S/S OF INFILTRATION NOTED. DISCUSSED POC FOR THE DAY WITH PT INCLUDING PAIN/ITCHING MANAGEMENT AND POSSIBLE BIOPSY RESULTS. PT VERBALIZED UNDERSTANDING. BED IN LOWEST POSITION WITH SIDE RAILS UP X2 AND CALL LIGHT WITHIN REACH. PT ENCOURAGED TO USE CALL LIGHT FOR ASSISTANCE. VERBALIZED UNDERSTANDING.
[2017-05-16] MEDS: cloNIDine HCL 0.1 MG TABLET PO SCH ×3 (09:12→21:45)
[2017-05-16] MEDS: MAGNESIUM CHLORIDE 64 MG TABLET.DR PO SCH ×2 (09:12→21:46)
[2017-05-16] MEDS: LORATADINE 10 MG TABLET PO SCH (09:13)
[2017-05-16] MEDS: amLODIPine BESYLATE 10 MG TABLET PO SCH (09:13)
[2017-05-16] MEDS: PARoxetine HCL 20 MG TABLET PO SCH ×2 (09:13→21:46)
[2017-05-16] MEDS: LOSARTAN POTASSIUM 50 MG TABLET (COZAAR) PO SCH (09:14)
[2017-05-16] MEDS: methylPREDNISolone SOD SUCC 40 MG/ML VIAL IVP SCH ×2 (09:14→21:44)
[2017-05-16] MEDS: glipiZIDE XL 5 MG TAB ( GLUCOTROL XL) PO SCH ×2 (09:19→21:45)
--- NOTE | 2017-05-16 11:38 | NUR ---
ROUNDS PT UP AMBULATING IN THE HALLWAY IN NO ACUTE DISTRESS. PAIN/ITCHING TOLERABLE AT THIS TIME. WILL CONTINUE TO MONITOR
--- NOTE | 2017-05-16 12:45 | NUR ---
Nutrition F/U Admitting Diagnosis Abd pain, mild protein malnutrition Reviewed Pertinent Medical/Surgical Hx Medical Record Patient Primary RN Medical History Comment: DM type 2, HTN, depression per MD notes Subjective Information Pt seen resting in bed after lunch meal. Pt reported that she has been forcing herself to eat, though she hasn't had much of an appetite d/t itchiness and anxiety. Pt reported last BM was yesterday after she was given MOM. Pt stated she was waiting to hear from Dr. Castillo regarding her Bx results. Pt ate half of hamburger, and stated that she is watching her carb intakes as she knows she is also on steroids. Pt is meeting optimal nutritional needs, and would most benefit from a diabetic diet. Pt is not appropriate for nutrition education. Current Diet Order/Nutrition Support Regular x4 days Patient/Significant Other Able To Verbalize Education Provided Not Indicated Pertinent Medications MOM, solu-medol, SSI, slow-mag, glipizide, zofran Pertinent Labs BG 242 H, POC BG 236 H, WBC 9.5 WNL (improved), ALP 122 H (05/10/17), Alb 2.8 L (05/10/17), H/H 11.5 L/34.2 L, LDL 106 H (04/28/17), HDL 28 H (04/28/17), Triglycerides 220 H (04/28/17) Height (Feet) 5 feet Height (Inches) 3.00 inches Weight (Pounds) 213 pounds (admission) Weight (Calculated Kilograms) 96.754559 kilograms Patient Weight 96.615 kg Body Mass Index 37.73 kg/m2 Usual Weight 220 lbs %UBW 97 %IBW 187 [place]/Adjusted Body Weight IBW: 115 lb, 52 kg. Adj IBW (obesity): 140 lb, 64 kg Recent Weight Change Yes - 7 lb wt loss within past month d/t abd pain; 3% significant wt change Weight Status Obese Food Allergies Yes - Onions; reaction: vomiting/hives Last BM 05/15/17 Usual Diet At Home Tries to monitor BG levels; eats more fish and tries to eat less red meat Skin Integrity Comment: Karel scale: 22; per nursing notes, anterior lateral L posterior R back: generalized rash; L neck: incision Current % PO Good -- 74% average x11 meals Estimated Energy Expenditure (kcals/day) 2866-7159 kcal/day (BEE x 1-1.2 CBW for maintenance) Estimated Protein Required (g/day) 42-52 gm/day (0.8-1 gm/kg IBW for maintenance) Estimated Fluid Required (l/day) 1.6-2 L/day (1 ml/kcal/day for maintenance) Problem/Etiology/Signs/Symptoms Complicated GI function related to abd pain as evidenced by need for GI workups and pending colonoscopy. *no longer applicable Altered nutrition-related labs related to endocrine dysfunction as evidenced by elevated BG and POC BG lab values. *ongoing Expected Outcomes/Goals - Monitor pt appetite, and PO intakes w/ goal of pt meeting at least 80% of estimated nutritional needs, labs trending WNL, normal GI function, and skin integrity/wt maintenance Dietitian Recommendations * Recommend [facility] diet Follow Up Moderate Risk: F/U 3-5 days
--- NOTE | 2017-05-16 13:30 | NUR ---
DC Planning: F/u with Queenie in Pathology dept " the bx result is not ready today dt needing more testing to be done to r/o Lymphoma." Dr. Castillo made aware and confirmed not to dc pt. until get the result. >> updated pt. status and informed Seth # [phone] that the pathology biopsy result is expecting to be ready tomorrow. Per Seth: inpt auth will be consider pending on clinical review received.
--- NOTE | 2017-05-16 14:18 | NUR ---
Dietitian Recommendations * [facility], RD Please refer to Nutrition Assessment for details.
--- NOTE | 2017-05-16 14:26 | NUR ---
ROUNDS PT SITTING UP IN BED TALKING TO VISITOR AT THIS TIME. DENIES ANY PAIN AT THIS TIME. IVF INFUSING WELL. RECENTLY MEDICATED WITH BENADRYL FOR ITCHING. CALL LIGHT WITHIN REACH. WILL CONTINUE TO MONITOR
--- NOTE | 2017-05-16 16:10 | NUR ---
ROUNDS PT SITTING UP IN CHAIR WATCHING TV. DENIES ANY PAIN AT THIS TIME. EDUCATED PT ON [facility] DIET. PT VERBALIZED UNDERSTANDING. CALL LIGHT WITHIN REACH. WILL CONTINUE TO MONITOR
--- NOTE | 2017-05-16 18:23 | NUR ---
CLOSING NOTE PT SITTING UP IN CHAIR IN NO ACUTE DISTRESS. DENIES ANY PAIN AT THIS TIME. RECENTLY RECEIVED BENADRYL AND VISTARIL FOR ITCHING. IVF INFUSING WELL INTO RT HAND. PT STILL WAITING FOR FINAL RESULTS OF LYMPH NODE BIOPSY. CALL LIGHT WITHIN REACH WITH BED IN LOWEST POSITION. WILL ENDORSE TO NEXT SHIFT.
--- NOTE | 2017-05-16 19:15 | NUR ---
change of shift.pt.presents rash/itch status;prolonged period.no distress/discomfort apart from the itch discomfort/pain.pt.presents stable status.pt.present room air;iv fluids infusing.no requests @ this hour.call light w/in the pt's reach.
--- NOTE | 2017-05-16 20:00 | NUR ---
pt.assessed.v/s assessed;values w/in normal limits.i have reiterated to the pt.that snacks are available throught the shift.pt.capable to reposition self.call light w/in the pt's reach.pt.has requested to shower.
--- NOTE | 2017-05-16 22:00 | NUR ---
pt.assessed.pt.capable to reposition self.no distress/discomfort.pt.presents quiescent affect;calm,asleep. iv fluids infusing.call light w/in the pt's reach.
[2017-05-17] VITALS (8 sets, daily range): BP systolic 116–154
--- NOTE | 2017-05-17 | NUR ---
pt.assessed.v/s assessed:values w/in normal limits.pt.capable to reposition self.no requests@this hour. no distress/discomfort manifested.chad light w/in the pt's reach.
--- NOTE | 2017-05-17 01:00 | NUR ---
the medication vistaril:ordered routine:q-4hrs due@0100 am.i had to awaken the pt.deep somnolent status.pt.stated it is ok to awaken her.no distress/discomfort,no request@this hour.call light w/in the pt's reach.
--- NOTE | 2017-05-17 02:00 | NUR ---
pt.assessed.pt.capable to reposition self.pt.presents no distress/discomfort.iv fluids infusing call light w/in the pt's reach.
--- NOTE | 2017-05-17 04:00 | NUR ---
pt.assessed.v/s assessed;values w/in normal limits.no c/op pain,nausea.pt.capable of repositioning self.iv fluids infusing.call light w/in the pt's reach.
[2017-05-17] MEDS: DIPHENHYDRAMINE INJ 50 MG/ML VIAL IVP PRN ×5 (04:27→21:01)
--- NOTE | 2017-05-17 04:35 | NUR ---
pt.requested the administration benadryl.i have administered benadryl;50mg ivp.pt.requested ice water,i have provided the ice water and a pair of socks;clean. Addendum: 05/17/17 at 0438 by Shon Hayden RN pt.requested a clean gown.i have provided the clean gown.
[2017-05-17] MEDS: LR 1,000 ML IV SCH ×2 (05:44→15:35)
[2017-05-17] MEDS: MORPHINE 4 MG/ML INJ. SYRINGE IVP PRN ×2 (05:47→21:02)
--- NOTE | 2017-05-17 06:45 | NUR ---
pt.assessed.pt.presents stable status.pt.received the administration morphine;4mg ivp.@ approximately:0530a.blood glucose;244mg/dl.4 units regular insulin administered. call light w/in the pt's reach.
[2017-05-17] MEDS: INSULIN REGULAR, HUMAN 100 UNITS/ML, 10 ML VIAL (novoLIN R) SUBCUT PRN ×4 (06:53→21:16)
--- NOTE | 2017-05-17 08:27 | NUR ---
OPENING NOTE RECEIVED PT AAOX4 SITTING UP IN BED IN NO ACUTE DISTRESS. PT DENIES ANY PAIN AT THIS TIME. STATES SHE FEELS MUCH BETTER TODAY. IVF INFUSING WELL INTO RT HAND, NO S/S OF INFILTRATION NOTED. DISCUSSED POC FOR THE DAY WITH PT. CALL LIGHT WITHIN REACH. ENCOURAGED PT TO USE CALL LIGHT FOR ASSISTANCE. VERBALIZED UNDERSTANDING.
[2017-05-17] MEDS: methylPREDNISolone SOD SUCC 40 MG/ML VIAL IVP SCH ×2 (09:33→21:01)
[2017-05-17] MEDS: LORATADINE 10 MG TABLET PO SCH (09:33)
[2017-05-17] MEDS: glipiZIDE XL 5 MG TAB ( GLUCOTROL XL) PO SCH ×2 (09:33→21:04)
[2017-05-17] MEDS: amLODIPine BESYLATE 10 MG TABLET PO SCH (09:35)
[2017-05-17] MEDS: LOSARTAN POTASSIUM 50 MG TABLET (COZAAR) PO SCH (09:35)
[2017-05-17] MEDS: cloNIDine HCL 0.1 MG TABLET PO SCH ×3 (09:35→21:03)
[2017-05-17] MEDS: MAGNESIUM CHLORIDE 64 MG TABLET.DR PO SCH ×2 (09:36→21:04)
[2017-05-17] MEDS: PARoxetine HCL 20 MG TABLET PO SCH ×2 (09:36→21:02)
--- NOTE | 2017-05-17 12:50 | NUR ---
ROUNDS PT SITTING UP IN BED WATCHING TV AT THIS TIME. DENIES ANY PAIN. IVF INFUSING WELL, NO S/S OF INFILTRATION NOTED. WAITING FOR PATHOLOGY REPORT. CALL LIGHT WITHIN REACH. WILL CONTINUE TO MONITOR
--- NOTE | 2017-05-17 14:42 | NUR ---
ROUNDS PT SITTING UP IN BED IN NO ACUTE DISTRESS. MEDICATED WITH BENADRYL FOR ITCHING. PT UPDATED ON TIMES WHEN NEXT DOSE OF BENADRYL AND PAIN MEDICATION DUE AND INFORMATION WRITTEN ON PT'S WHITEBOARD. CALL LIGHT WITHIN REACH. WILL CONTINUE TO MONITOR
[2017-05-17] MEDS: HYDROcodone/ACETAMIN 5-325 MG TAB (NORCO/ VICODIN) PO PRN (17:09)
--- NOTE | 2017-05-17 18:49 | NUR ---
CLOSING NOTE PT SITTING UP IN BED IN NO ACUTE DISTRESS. STATES SHE NOTICES PAIN IN HER THROAT/NECK AFTER EATING BUT THAT PAIN IS TOLERABLE AT THIS TIME. GENERALIZED RASH REMAINS BUT IMPROVING. WILL MEDICATE FOR ITCHING PRIOR TO SHIFT CHANGE REPORT. IVF INFUSING WELL INTO RT HAND, NO S/S OF INFILTRATION NOTED. CALL LIGHT WITHIN REACH. PT ENCOURAGED TO USE CALL LIGHT FOR ASSISTANCE. VERBALIZED UNDERSTANDING. WILL ENDORSE TO [employer] OFFICER.
--- NOTE | 2017-05-17 19:30 | NUR ---
INITIAL NOTES PT. RECEIVED SITTING UP IN BED, ALERT AND ORIENTED. NO S/S OF SOB OR DISTRESS. VSS. STATES SHE IS HAVING SOME PAIN. WILL MEDICATE FOR PAIN ORDERED. INCISION TO LEFT LATERAL NECK COVERED WITH DRESSING THAT IS CLEAN DRY AND INTACT. NO ACTIVE BLEEDING NOTED. IV TO RIGHT HAND #22 PATENT, INFUSING IVF ORDERED. FULL BODY RASH NOTED. PT STATES ITCHING IS ALLEVIATED BY BENADRYL, WILL ADMINISTER PRN DOSE ORDERED. PT. STATES SHE IS ABLE TO AMBULATE WITH STEADY GAIT. REFUSING SCDS AT THIS TIME. WILL ENCOURAGE USE AGAIN AT A LATER TIME. EDUCATION PROVIDED. USE OF CALL LIGHT ENCOURAGED. PLAN OF CARE DISCUSSED WITH PT., VERBALIZES UNDERSTANDING. WILL CONT. TO MONITOR FOR CHANGES. SAFETY AND FALL PRECAUTIONS IN PLACE. CALL LIGHT IN REACH. BED IN LOWEST LOCKED POSITION.
--- NOTE | 2017-05-17 22:05 | NUR ---
ROUNDS PT. RESTING IN BED WATCHING TELEVISION. NO SIGNS OF ACUTE DISTRESS. IVF CONTINUE TO INFUSE TO RIGHT HAND WITH NO SIGNS OF INFILTRATION NOTED. PT. STATES MORPHINE AND BENADRYL WERE EFFECTIVE IN MANAGING PAIN AND DISCOMFORT. WILL CONT. TO MONITOR FOR CHANGES. SAFETY AND FALL PRECAUTIONS IN PLACE, CALL LIGHT IN REACH.
--- NOTE | 2017-05-18 00:38 | NUR ---
ROUNDS PT. RESTING IN BED WATCHING TELEVISION, REQUESTING PAIN MEDICATION. SHE IS NOT YET DUE. INFORMED PT. SHE WOULD BE ABLE TO GET PAIN MEDS IN ABOUT 30 MINS, VERBALIZES UNDERSTANDING. IVF CONT. TO INFUSE WELL. WILL CONT. TO MONITOR FOR CHANGES. SAFETY AND FALL PRECAUTIONS IN PLACE. CALL LIGHT IN REACH.
[2017-05-18] MEDS: DIPHENHYDRAMINE INJ 50 MG/ML VIAL IVP PRN ×3 (01:07→08:54)
[2017-05-18] MEDS: MORPHINE 4 MG/ML INJ. SYRINGE IVP PRN ×2 (01:08→05:36)
[2017-05-18] MEDS: LR 1,000 ML IV SCH (01:15)
--- NOTE | 2017-05-18 02:30 | NUR ---
ROUNDS PT. SITTING UP IN BED WATCHING TELEVISION. STATES PAIN MEDICATION WAS EFFECTIVE IN LOWERING PAIN. IVF CONTINUE TO INFUSE WELL.WILL CONTINUE TO MONITOR. CALL LIGHT IN REACH. BED IN LOWEST LOCKED POSITION.
[2017-05-18 03:58] VITALS: BP_SYST 155
--- NOTE | 2017-05-18 04:14 | NUR ---
ROUNDS PT. IN BED, NO SIGNS OF ACUTE DISTRESS. NO COMPLAINTS OF PAIN. WILL CONT. TO MONITOR.
--- NOTE | 2017-05-18 05:47 | NUR ---
PAIN AND ITCHING Patient is awake with c/o pain and itching. Morphine and Benadryl IVP was administered as ordered PRN. See EMAR. Educated patient regarding medication and potential side effects. Instructed patient to use call light for needs. Safety and fall precautions in place. Primary nurse, KRISTINA Whipple also made aware.
[2017-05-18] MEDS: INSULIN REGULAR, HUMAN 100 UNITS/ML, 10 ML VIAL (novoLIN R) SUBCUT PRN ×2 (06:12→11:33)
--- NOTE | 2017-05-18 06:43 | NUR ---
CLOSING NOTES PT. RESTING IN BED WITH NO SIGNS OF ACUTE DISTRESS. IV REMAINS PATENT. STATES PRN MEDICATIONS WERE EFFECTIVE IN ALLEVIATING SYMPTOMS OF DISCOMFORT. ALL NEEDS MET THROUGHOUT THE SHIFT. SAFETY AND FALL PRECAUTIONS WERE MAINTAINED. WILL ENDORSE CARE TO AM NURSE. CALL LIGHT IN REACH.
--- NOTE | 2017-05-18 07:55 | NUR ---
Opening Note Report received report from Sole ACEVEDO. Patient is awake and alert and resting in bed. IV is on the right hand 22g running LR@100ml/hr. Call light is within reach and bed is in low position. Will continue to monitor.
[2017-05-18 08:00] VITALS: BP_SYST 152
[2017-05-18] MEDS: cloNIDine HCL 0.1 MG TABLET PO SCH (08:52)
[2017-05-18] MEDS: methylPREDNISolone SOD SUCC 40 MG/ML VIAL IVP SCH (08:52)
[2017-05-18] MEDS: PARoxetine HCL 20 MG TABLET PO SCH (08:53)
[2017-05-18] MEDS: LOSARTAN POTASSIUM 50 MG TABLET (COZAAR) PO SCH (08:53)
[2017-05-18] MEDS: glipiZIDE XL 5 MG TAB ( GLUCOTROL XL) PO SCH (08:54)
[2017-05-18] MEDS: amLODIPine BESYLATE 10 MG TABLET PO SCH (08:54)
[2017-05-18] MEDS: MAGNESIUM CHLORIDE 64 MG TABLET.DR PO SCH (09:04)
[2017-05-18] MEDS: LORATADINE 10 MG TABLET PO SCH (09:11)
--- NOTE | 2017-05-18 10:20 | NUR ---
MD rounds Dr. Castillo and Rose Marie rounded on the patient. Both stated that the patient is stable for dc.
[2017-05-18 11:00] VITALS: BP_SYST 152
[2017-05-18 12:07] VITALS: BP_SYST 148
[2017-05-18] MEDS ORDERED: BEN50 PO (12:11)
[2017-05-18] MEDS ORDERED: VIS50 (12:12)
[2017-05-18] MEDS ORDERED: DEC1 PO (12:13)
--- NOTE | 2017-05-18 12:30 | NUR ---
Transition of Care All transition care instruction and prescriptions were handed to the patient. She verbalized understanding. IV and ID band were removed. Instructed the patient to follow up with Dr. Trotter.
--- NOTE | 2017-05-18 13:09 | NUR ---
RN Note Patient left the unit in stable condition. Accompanied by family and staff.
--- NOTE | 2017-05-18 14:57 | NUR ---
DC PLANING: Received call from patricia Thorpe from [facility] Plan--CB#[phone], stated she approved pt. transferring back to [facility]. Cm/DCP will f/u with [place] for bed assignment. Per Ila's request , to call april wheatley/Nessa # [phone] as needed. Addendum: 05/21/17 at 1635 by Ashley Garcia RN please disregard dc planning above due to wrong entry /wrong patient
--- NOTE | 2017-05-22 10:30 | NUR ---
Dc planning: Faxed pathology reports , dc summary, serology report, hematology progress note to Seth per his request. No auth receieved.
== END 2017-05-18 13:10 | disposition home or self-care (01) | DRG 710 ==
LOC: SED 17:05 → SMU 19:12 → STU 05-11 23:03 → SMU 05-12 12:01
PROVIDERS: ADMIT Internal Medicine; ATTEND Internal Medicine
PROC: 0DBC8ZX Excision of Ileocecal Valve, Via Natural or Artificial Opening Endoscopic, Diagnostic (ICD-10-PCS; 2017-04-29)
PROC: 07B20ZX Excision of Left Neck Lymphatic, Open Approach, Diagnostic (ICD-10-PCS; principal; 2017-05-11 14:45)
DX: B27.00 Gammaherpesviral mononucleosis without complication (principal); E44.1 Mild protein-calorie malnutrition; I10 Essential (primary) hypertension; F11.20 Opioid dependence, uncomplicated; E11.9 Type 2 diabetes mellitus without complications; E66.9 Obesity, unspecified; E87.6 Hypokalemia; L29.9 Pruritus, unspecified; K64.8 Other hemorrhoids; K59.09 Other constipation; E78.5 Hyperlipidemia, unspecified; F32.9 Major depressive disorder, single episode, unspecified; G43.909 Migraine, unspecified, not intractable, without status migrainosus; F41.9 Anxiety disorder, unspecified; R21 Rash and other nonspecific skin eruption; K57.30 Diverticulosis of large intestine without perforation or abscess without bleeding; E83.42 Hypomagnesemia; R59.1 Generalized enlarged lymph nodes; D17.79 Benign lipomatous neoplasm of other sites; Z90.710 Acquired absence of both cervix and uterus; Z90.49 Acquired absence of other specified parts of digestive tract; Z88.8 Allergy status to other drugs, medicaments and biological substances; Z68.37 Body mass index [BMI] 37.0-37.9, adult
CPT/HCPCS: 36415; 45380; 70491-TC; 71010; 74020-TC; 74270-TC; 80048; 80053; 80061; 81000-TC; 81025; 82378; 82962; 83615-TC; 83690-TC; 83735-TC; 84443-TC; 84703; 85025; 85044-TC; 85610-TC; 85651-TC; 85730-TC; 86480; 86592; 86635; 86803; 87070; 87070-TC; 87075-TC; 87081; 87101; 87116; 87340; 87899; 88305; 88307; 88341; 88342; 88361; 93005; 94760; 96372; 99285; C9113; J0330; J0456; J0690; J1030; J1100; J1170; J1200; J1815; J1885; J2175; J2250; J2270; J2405; J2704; J3010; J3475; J3490; J7030; J7040; J7050; J7060; J7120; Q9964; Q9967

== ENCOUNTER 2017-08-28 13:19 | Emergency (ER) | payer MEDICAID ==
[~2017-08-28] VITALS: Ht 152.4 cm; Wt 78.5 kg
[~2017-08-28 13:19] MED LIST changes: +BEN50 PO; -BUSP5TAB3 PO; +DEC1 PO; +VIS50
[2017-08-28 13:22] VITALS: BP_SYST 144
[2017-08-28 14:02] LABS: BASOPHILS # (AUTO) 0.1 K/uL (0.0-0.2); BASOPHILS % (AUTO) 0.5 % (0.0-2.0); EOSINOPHILS # (AUTO) 0.3 K/uL (0.0-0.4); EOSINOPHILS % (AUTO) 2.4 % (0.0-4.0); HEMATOCRIT 32.5 % (36-48); HEMOGLOBIN 10.8 g/dL (12.0-16.0); LYMPHOCYTES # (AUTO) 1.4 K/uL (1.0-5.5); LYMPHOCYTES % (AUTO) 10.2 % (20.5-51.5); MEAN CORPUSCULAR HEMOGLOBIN 29 pg (27-31); MEAN CORPUSCULAR HGB CONC 33 % (32-36); MEAN CORPUSCULAR VOLUME 87 fL (79.0-98.0); MONOCYTES # (AUTO) 1.1 K/uL (0.0-1.0); MONOCYTES % (AUTO) 7.9 % (1.7-9.3); NEUTROPHILS # (AUTO) 10.5 K/uL (1.8-7.7); RED BLOOD CELL COUNT(AUTO) 3.72 MIL/uL (4.2-6.2); RED CELL DISTRIBUTION WIDTH 16.9 % (9.0-15.0); WHITE BLOOD COUNT (AUTO) 13.4 K/uL (4.8-10.8)
[2017-08-28 14:10] LABS: PLATELET COUNT (AUTO) 765 K/uL (130-430)
[2017-08-28 14:11] LABS: CALCIUM 10.4 mg/dL (8.4-11.0); CREATININE 0.55 mg/dL (0.55-1.30); POTASSIUM 4.1 mmol/L (3.5-5.1)
[2017-08-28 14:19] LABS: ALBUMIN 3.2 g/dL (3.4-4.8); TOTAL BILIRUBIN 0.4 mg/dL (0.0-1.0)
--- NOTE | 2017-08-28 15:56 | NUR ---
awaiting bed, no s/s of distress at this time. Blankets and tissue provided for comfort
--- NOTE | 2017-08-28 16:15 | NUR ---
Patient to [facility] to await MD evaluation.
--- NOTE | 2017-08-28 16:20 | NUR ---
Patient to ER via triage with c/o sore throat, productive cough x 4 days, increasing in severity. Patient also c/o dysuria since this am. Blood and urine sent while patient was in triage. Patient has HX of Lymphoma-was advised by oncologist to come to ER for evaluation. Patient did not receive chemotherapy today. Patient denies nausea, vomiting, fever, chills, CP or SOB. Lung sounds clear to auscultation. Awaiting evaluation by ER MD, will continue to observe and assess.
--- NOTE | 2017-08-28 16:35 | NUR ---
Dr Venegas at bedside to evaluate patient.
[2017-08-28] MEDS ORDERED: IPRATROPIUM/ALBUTEROL SULFATE 3 ML AMPUL.NEB INH ONE (16:45)
--- NOTE | 2017-08-28 16:55 | NUR ---
RT at bedside for breathing treatment.
[2017-08-28 17:40] LABS: BILIRUBIN,URINE NEGATIVE (NEGATIVE); BLOOD, URINE NEGATIVE (NEGATIVE); CLARITY/URINE CLEAR (CLEAR); COLOR,URINE YELLOW (YELLOW); GLUCOSE,URINE NEGATIVE (NEGATIVE); KETONES,URINE NEGATIVE (NEGATIVE); LEUKOCYTE ESTERASE ,URINE NEGATIVE (NEGATIVE); NITRITE, URINE NEGATIVE (NEGATIVE); PROTEIN URINE NEGATIVE (NEGATIVE); UROBILINOGEN,URINE 0.2 (0.2-1.0)
--- NOTE | 2017-08-28 17:55 | NUR ---
Patient resting quietly in no acute distress. Awaiting dispo
[2017-08-28] MEDS ORDERED: ACETAMINOPHEN/CODEINE 300 MG-30 MG TABLET PO ONE (18:15)
--- NOTE | 2017-08-28 18:15 | NUR ---
Patient medicated for pain in chest from coughing. Patient states that she and her friend have a ride home and will noted be driving.
[2017-08-28 18:27] VITALS: BP_SYST 148
--- NOTE | 2017-08-28 18:27 | NUR ---
Patient given written and verbal discharge instructions and verbalizes understanding. ER MD discussed with patient the results and treatment provided. Patient in stable condition. ID arm band removed. Rx of macrobid,promethazine HCL/DM given. Patient educated on pain management and to follow up with PMD. Pain Scale 0. Opportunity for questions provided and answered.
== END 2017-08-28 18:27 | disposition home or self-care (01) ==
LOC: SED 13:19
DX: J06.9 Acute upper respiratory infection, unspecified (principal); N39.0 Urinary tract infection, site not specified; E11.9 Type 2 diabetes mellitus without complications; I10 Essential (primary) hypertension; E78.00 Pure hypercholesterolemia, unspecified
CPT/HCPCS: 36415; 71045; 80053; 81003; 85025; 86710; 93005; 94640; 99285

== ENCOUNTER 2017-09-16 02:41 | Emergency (ER) | payer MEDICAID ==
[~2017-09-16] VITALS: Ht 154.9 cm; Wt 80.3 kg
[2017-09-16 02:41] VITALS: BP_SYST 136
[2017-09-16] MEDS ORDERED: CAT.1 PO (03:35)
[2017-09-16] MEDS ORDERED: SIMV20TA2 PO (03:37)
[2017-09-16] MEDS ORDERED: METO25TA3 PO (03:44)
[2017-09-16] MEDS ORDERED: ALLO300T2 PO (03:44)
[2017-09-16] MEDS ORDERED: LORA0.5T PO (03:44)
[2017-09-16] MEDS ORDERED: SITA100T7 PO (03:44)
[2017-09-16] MEDS ORDERED: HYDR-4100 PO (03:44)
[2017-09-16] MEDS ORDERED: FURO-150 PO (03:44)
[2017-09-16] MEDS ORDERED: TEMA15CA51 PO (03:44)
[2017-09-16] MEDS ORDERED: KETOROLAC TROMETHAMINE 60 MG/2 ML VIAL IM ONE (04:00)
[2017-09-16] MEDS ORDERED: KETOROLAC TROMETHAMINE 30 MG VIAL IVP ONE (04:00)
[2017-09-16] MEDS ORDERED: ONDANSETRON 4 MG ODT TAB PO ONE (04:00)
[2017-09-16] MEDS ORDERED: ONDANSETRON HCL 4 MG/2 ML VIAL IVP ONE (04:00)
[2017-09-16 04:41] LABS: MEAN CORPUSCULAR HEMOGLOBIN 29 pg (27-31); MEAN CORPUSCULAR HGB CONC 33 % (32-36); MEAN CORPUSCULAR VOLUME 87 fL (79.0-98.0); PLATELET COUNT (AUTO) 167 K/uL (130-430); RED BLOOD CELL COUNT(AUTO) 3.12 MIL/uL (4.2-6.2); RED CELL DISTRIBUTION WIDTH 16.3 % (9.0-15.0)
[2017-09-16 04:46] LABS: CALCIUM 9.4 mg/dL (8.4-11.0); CREATININE 0.45 mg/dL (0.55-1.30); POTASSIUM 3.5 mmol/L (3.5-5.1)
[2017-09-16 04:57] LABS: TOTAL BILIRUBIN 0.4 mg/dL (0.0-1.0)
[2017-09-16 04:58] LABS: ALBUMIN 3.3 g/dL (3.4-4.8)
[2017-09-16 05:18] LABS: BASOPHILS % (MANUAL) 0 % (0-2); EOSINOPHILS % (MANUAL) 10 % (0-7); LYMPHOCYTES % (MANUAL) 44 % (20-46); MONOCYTES % (MANUAL) 6 % (0-11)
[2017-09-16 05:48] VITALS: BP_SYST 127
== END 2017-09-16 05:48 | disposition home or self-care (01) ==
LOC: SED 02:41
DX: J06.9 Acute upper respiratory infection, unspecified (principal); R09.1 Pleurisy; C81.90 Hodgkin lymphoma, unspecified, unspecified site; D72.819 Decreased white blood cell count, unspecified; D64.9 Anemia, unspecified; I10 Essential (primary) hypertension; E11.9 Type 2 diabetes mellitus without complications; E78.00 Pure hypercholesterolemia, unspecified; Z90.710 Acquired absence of both cervix and uterus; Z88.8 Allergy status to other drugs, medicaments and biological substances; Z79.899 Other long term (current) drug therapy
CPT/HCPCS: 36415; 71045; 80053; 83605; 83690; 85007; 85027; 86710; 87040; 96372; 99285; J1885; Q0162

== ENCOUNTER 2018-03-15 21:20 | Emergency (ER) | payer MEDICAID ==
[~2018-03-15] VITALS: Ht 152.4 cm; Wt 87.1 kg
[~2018-03-15 21:20] MED LIST changes: +ACYC400T PO; +ALLO300T2 PO; -DEC1 PO; +FURO-150 PO; +HYDR-4100 PO; +LORA0.5T PO; +METO25TA3 PO; +PRO40 PO; +SIMV20TA2 PO; +SITA100T7 PO; +SUCR1TAB78 PO; +TEMA15CA51 PO
[2018-03-15 21:27] VITALS: BP_SYST 156
[2018-03-15] MEDS ORDERED: ACETAMINOPHEN/CODEINE 300 MG-30 MG TABLET PO ONE (22:45)
[2018-03-15 23:26] VITALS: BP_SYST 144
== END 2018-03-15 23:23 | disposition home or self-care (01) ==
LOC: SED 21:20
DX: S63.502A Unspecified sprain of left wrist, initial encounter (principal); E78.00 Pure hypercholesterolemia, unspecified; E11.9 Type 2 diabetes mellitus without complications; I10 Essential (primary) hypertension; Z90.49 Acquired absence of other specified parts of digestive tract; Z90.710 Acquired absence of both cervix and uterus; Z91.02 Food additives allergy status; Z88.8 Allergy status to other drugs, medicaments and biological substances; Z79.899 Other long term (current) drug therapy; X50.1XXA Overexertion from prolonged static or awkward postures, initial encounter; Y93.89 Activity, other specified; Y92.89 Other specified places as the place of occurrence of the external cause; Y99.8 Other external cause status
CPT/HCPCS: 99284